=== PATIENT | female | born 1975 | race Caucasian/White ===

== ENCOUNTER 2019-02-05 13:30 | Emergency (ER) | payer OTHER ==
[2019-02-05] MEDS ORDERED: NORCO 5/325 MG PO ONE ×2 (13:44→15:11)
--- NOTE | 2019-02-05 13:48 | ERPHSYRPT ---
- History of Present Illness Time Seen by Provider: 02/05/19 13:44 Source: patient Exam Limitations: no limitations Physician History: 43-year-old white female arrives with complaint of "a blood clot" in her left anterior leg symptoms since today. Patient states she suddenly noticed a painful raised area on her left anterior mid bagley she states it is tender. She does state that she's been having pain in her left leg off and on for a couple of days. She denies any injury. Past medical history includes ulcers, depression, pacer, DVT, depression, varicose veins, sick sinus syndrome, stent in left leg, fibromyalgia. Past surgical history appendectomy, cholecystectomy, hysterectomy, pacemaker, stent in left leg Social history positive for tobacco use patient denies alcohol or illicit drug use. Timing/Duration: today Severity: moderate Modifying Factors: Improves With: nothing Associated Symptoms: other (pain in left leg raise painful area anterior left leg), No nausea, No vomiting, No abdominal pain, No shortness of breath, No heartburn, No diaphoresis, No cough, No chills, No chest pain, No fever, No headaches, No loss of appetite, No malaise, No rash, No syncope, No seizure, No weakness Allergies/Adverse Reactions: Penicillins Allergy (Verified 02/05/19 13:36) quetiapine fumarate [From Seroquel] Allergy (Verified 02/05/19 13:36) Home Medications: Warfarin Sodium [Coumadin] 7.5 mg PO HS 05/24/15 [History] Omeprazole 20 MG [Prilosec 20 mg] 20 mg PO DAILY 05/31/15 [History] Gabapentin 150 mg PO TID 06/07/15 [History] Albuterol Sulfate [Proventil Hfa] 2 puff IH Q6H PRN PRN 07/16/15 [History] Hctz/Triamteren 37.5 mg/25 mg* [Maxzide-25MG Tablet] 12.5 tab PO DAILY [History] Clonazepam 0.5 mg [Klonopin 0.5 MG] 0.5 mg PO HS 07/18/16 [History] Potassium Chloride 10 Meq Tab* [Klor Con 10 MEQ] 10 meq PO DAILY 07/18/16 [ History] Tizanidine HCl 4 mg [Zanaflex 4 MG] 4 mg PO BID 07/18/16 [History] Hydrocodone Bit/Acetaminophen [Belcher 5-325 Tablet] 1 each PO QID 02/05/19 [ History] Metoprolol Tartrate 25 mg [Lopressor 25MG Tab] 1 tab PO DAILY 02/05/19 [ History] Hx Tetanus, Diphtheria Vaccination/Date Given: Yes Hx Influenza Vaccination/Date Given: No Hx Pneumococcal Vaccination/Date Given: No - Review of Systems Constitutional: No Fever, No Chills Eyes: No Symptoms Ears, Nose, & Throat: No Symptoms Respiratory: No Cough, No Dyspnea Cardiac: No Chest Pain, No Edema, No Syncope Abdominal/Gastrointestinal: No Abdominal Pain, No Nausea, No Vomiting, No Diarrhea Genitourinary Symptoms: No Dysuria Musculoskeletal: Other (raised painful area left leg since today, pain in left lower extremity x2-3 weeks) Skin: No Rash Neurological: No Dizziness, No Focal Weakness, No Sensory Changes Psychological: No Symptoms Endocrine: No Symptoms All Other Systems: Reviewed and Negative - Past Medical History Pertinent Past Medical History: Yes Neurological History: No Pertinent History ENT History: No Pertinent History Cardiac History: Other Respiratory History: No Pertinent History Endocrine Medical History: No Pertinent History Musculoskeletal History: No Pertinent History GI Medical History: Ulcer History: No Pertinent History Psycho-Social History: Depression Female Reproductive Disorders: No Pertinent History Other Medical History: PACEMAKER, 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,DEPRESSION,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,"SICK SINUS SYNDROME", STENT IN LEG,fibro - Past Surgical History Past Surgical History: Yes Neuro Surgical History: No Pertinent History Cardiac: No Pertinent History Respiratory: No Pertinent History Gastrointestinal: Appendectomy, Cholecystectomy Genitourinary: No Pertinent History Musculoskeletal: No Pertinent History Female Surgical History: Hysterectomy Other Surgical History: PACEMAKER - Social History Smoking Status: Current every day smoker How long have you smoked: 24 Exposure to second hand smoke: No Drug Use: none Patient Lives Alone: No - Nursing Vital Signs Nursing Vital Signs: Initial Vital Signs Temperature 98.5 F 02/05/19 13:45 Pulse Rate 68 02/05/19 13:45 Respiratory Rate 18 02/05/19 13:45 Blood Pressure 124/78 02/05/19 13:45 O2 Sat by Pulse Oximetry 98 02/05/19 13:45 Pain Scale Pain Intensity 6 - Physical Exam General Appearance: mild distress, alert, other (tearfull) Eye Exam: PERRL/EOMI, eyes nml inspection Ears, Nose, Throat Exam: normal ENT inspection, TMs normal, pharynx normal, moist mucous membranes Neck Exam: normal inspection, non-tender, supple, full range of motion Respiratory Exam: normal breath sounds, lungs clear, No respiratory distress Cardiovascular Exam: regular rate/rhythm, normal heart sounds, normal peripheral pulses, capillary refill <2 sec Gastrointestinal/Abdomen Exam: soft, normal bowel sounds, No tenderness, No mass Back Exam: normal inspection, normal range of motion, No CVA tenderness, No vertebral tenderness Extremity Exam: normal range of motion, other (left leg negative swelling, one by 2 cm carpal raised area anterior mid left bagley painful a palpation) Neurologic Exam: alert, oriented x 3, cooperative, parking 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 as tested, normal mood/affect, nml cerebellar function, nml station & gait, sensation nml, No motor deficits Skin Exam: normal color, warm, dry, No rash Lymphatic Exam: No adenopathy SpO2 Interpretation: normal - Course Nursing assessment & vital signs reviewed: Yes Ordered Tests: Active Orders 24 hr Category Date Time Status Ken Bandage Application -[facility] STAT Care 02/05/19 15:57 Active VENOUS UNILAT/LIMITED EXTREMIT [US] Stat Exams 02/05/19 Ordered CBC W DIFF Stat Lab 02/05/19 13:43 Completed CMP Stat Lab 02/05/19 13:43 Completed D-DIMER QUANTITATION Stat Lab 02/05/19 13:43 Completed PROTIME WITH INR Stat Lab 02/05/19 13:43 Completed PTT Stat Lab 02/05/19 13:43 Completed Medication Summary Discontinued Medications Generic Name Dose Route Start Last Admin Trade Name Freq PRN Reason Stop Dose Admin Hydrocodone Bitart/Acetaminophen 1 tab 02/05/19 13:44 02/05/19 13:55 Belcher 5/325 Mg PO 02/05/19 13:45 1 tab STAT ONE Administration Hydrocodone Bitart/Acetaminophen Confirm 02/05/19 13:54 Belcher 5/325 Mg Administered 02/05/19 13:55 Dose 1 tab .ROUTE .STK-MED ONE Hydrocodone Bitart/Acetaminophen 1 tab 02/05/19 15:11 02/05/19 15:12 Belcher 5/325 Mg PO 02/05/19 15:12 1 tab STAT ONE Administration Hydrocodone Bitart/Acetaminophen Confirm 02/05/19 15:12 Belcher 5/325 Mg Administered 02/05/19 15:13 Dose 1 tab .ROUTE .STK-MED ONE Lab/Rad Data: Laboratory Result Diagrams 02/05/19 13:43 02/05/19 13:43 Laboratory Results 02/05/19 02/05/19 02/05/19 Range/Units 13:43 13:43 13:43 WBC 11.3 H (4.0-10.5) K/mm3 RBC 4.94 (4.1-5.4) M/mm3 Hgb 15.0 (12.0-16.0) gm/dl Hct 45.3 (35-47) % MCV 91.7 (78-100) fl MCH 30.4 (26-32) pg MCHC 33.1 (32-36) g/dl RDW 13.3 (11.5-14.0) % Plt Count 216 (150-450) K/mm3 MPV 11.1 H (6-9.5) fl Gran % 55.7 (36.0-66.0) % Eos # (Auto) 0.26 (0-0.5) Absolute Lymphs (auto) 3.92 (1.0-4.6) Absolute Monos (auto) 0.79 (0.0-1.3) Lymphocytes % 34.8 (24.0-44.0) % Monocytes % 7.0 (0.0-12.0) % Eosinophils % 2.3 (0.00-5.0) % Basophils % 0.2 (0.0-0.4) % Absolute Granulocytes 6.29 (1.4-6.9) Basophils # 0.02 (0-0.4) PT 35.7 H (9.95-12.35) SECONDS INR 3.09 H (0.8-3.0) APTT 55.0 H (25.3-37.0) SECONDS D-Dimer 829 H* (215-500) ng/mL Sodium 141 (137-145) mmol/L Potassium 3.7 (3.5-5.1) mmol/L Chloride 103 (98-107) mmol/L Carbon Dioxide 25 (22-30) mmol/L Anion Gap 17.0 H (5-15) MEQ/L BUN 9 (7-17) mg/dL Creatinine 0.99 (0.52-1.04) mg/dL Estimated GFR > 60.0 ML/MIN Glucose 86 (74-106) mg/dL Calcium 10.4 H (8.4-10.2) mg/dL Total Bilirubin 0.50 (0.2-1.3) mg/dL AST 26 (14-36) U/L ALT 22 (0-35) U/L Alkaline Phosphatase 81 (38-126) U/L Serum Total Protein 9.0 H (6.3-8.2) g/dL Albumin 4.9 (3.5-5.0) g/dL - Progress Progress: improved Progress Note: 02/05/19 15:58 Patient feeling better after Belcher x2 (). Venous Doppler negative for DVT per electrical engineering technologist. Will discharge patient will place Ken wrap to the left lower leg. - Departure Departure Disposition: Home Clinical Impression: Hematoma of left lower extremity Qualifiers: Encounter type: initial encounter Qualified Code(s): S80.12XA - Contusion of left lower leg, initial encounter Condition: Fair Critical Care Time: No Referrals: LOLA BRADFORD [Primary Care Provider] - Additional Instructions: Return home. Elevate left leg 24-48 hours. Cold packs to area 24-48 hours. Belcher as prescribed by your family . Followup with your family if symptoms no better in 24-48 hours worse or persist longer than 72 hours. Return for acute distress or for severe symptoms.
[2019-02-05 13:54] LABS: BASOPHIL % 0.2 % (0.0-0.4); Basophil (Absolute #) 0.02 (0-0.4); Eosinophil % 2.3 % (0.00-5.0); Eosinophil (Absolute #) 0.26 (0-0.5); Granulocyte Absolute (ANC) 6.29 (1.4-6.9); Granulocytes % 55.7 % (36.0-66.0); Hematocrit 45.3 % (35-47); Lymphocyte (Absolute #) 3.92 (1.0-4.6); Lymphocytes % 34.8 % (24.0-44.0); Mean Cell Volume 91.7 fl (78-100); Mean Corpuscular Hemoglobin 30.4 pg (26-32); Mean Corpuscular Hgb Concent. 33.1 g/dl (32-36); Mean Platelet Volume 11.1 fl (6-9.5); Monocyte (Absolute #) 0.79 (0.0-1.3); Platelet Count 216 K/mm3 (150-450); Red Blood Count 4.94 M/mm3 (4.1-5.4); Red Cell Distribution Width 13.3 % (11.5-14.0); White Blood Count 11.3 K/mm3 (4.0-10.5)
[2019-02-05] MEDS ORDERED: NORCO 5/325 MG ONE ×2 (13:54→15:12)
[2019-02-05 14:01] LABS: INR 3.09 (0.8-3.0); PROTIME 35.7 SECONDS (9.95-12.35)
[2019-02-05 14:04] LABS: ALBUMIN 4.9 g/dL (3.5-5.0); ALKALINE PHOSPHATASE 81 U/L (38-126); BLOOD UREA NITROGEN 9 mg/dL (7-17); CHLORIDE 103 mmol/L (98-107); Calcium 10.4 mg/dL (8.4-10.2); Carbon Dioxide 25 mmol/L (22-30); Creatinine 1 0.99 mg/dL (0.52-1.04); Glucose 86 mg/dL (74-106); Potassium 3.7 mmol/L (3.5-5.1); SGOT/AST 26 U/L (14-36); SGPT/ALT 22 U/L (0-35); SODIUM 141 mmol/L (137-145)
[2019-02-05 15:14] VITALS: PULSE 61; O2SAT 98
[2019-02-05 16:11] VITALS: BP 107/66
--- NOTE | 2019-02-05 21:17 | XRAY ---
Indication: Calf discoloration and pain. History of DVT. Two-dimensional sonogram and color Doppler imaging of the major venous vessels of the left leg was performed. Comparison: None No thrombus seen in the examined deep venous vessels of the left leg including greater saphenous vein. Veins demonstrate normal compressibility. Venous waveforms are normal with and without augmentation. Impression: Left leg negative for DVT. Comment: Preliminary report was given.
== END 2019-02-05 16:19 | disposition home or self-care (01) ==
LOC: ED 13:30
DX: S80.12XA Contusion of left lower leg, initial encounter (principal); M79.605 Pain in left leg; Z86.718 Personal history of other venous thrombosis and embolism; Z79.01 Long term (current) use of anticoagulants; Z79.899 Other long term (current) drug therapy; Z95.0 Presence of cardiac pacemaker
CPT/HCPCS: 36415; 80053; 85025; 85379; 85610; 85730; 93971; 99284; A9270-GY

== ENCOUNTER 2020-01-20 13:14 | Emergency (ER) | payer OTHER ==
[2020-01-20] MEDS ORDERED: TYLENOL EXTRA STRENGTH 500 MG PO STA (13:35)
[2020-01-20] MEDS ORDERED: MOTRIN 600 MG PO ONE (13:35)
[2020-01-20] MEDS ORDERED: MOTRIN 600 MG ONE (13:43)
[2020-01-20] MEDS ORDERED: TYLENOL EXTRA STRENGTH 500 MG ONE (13:43)
--- NOTE | 2020-01-20 13:57 | ERPHSYRPT ---
- History of Present Illness Time Seen by Provider: 01/20/20 13:17 Source: patient Exam Limitations: no limitations Patient Subjective Stated Complaint: pt here for right hand pain after hitting a wall. Triage Nursing Assessment: pt alert, walked in, resp easy, skin w/d/p. has swelling right hand. pink nail beds, has strong radial pulse Physician History: Patient is here with right hand pain. Patient states that she punched a wall just prior to arrival. No falls or other trauma. Patient now has pain over her fifth right metacarpal. 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: after hitting a wall Modifying factors/associated signs and symptoms: none tried Severity: moderate Allergies/Adverse Reactions: Penicillins Allergy (Verified 01/20/20 13:35) quetiapine fumarate [From Seroquel] Allergy (Verified 01/20/20 13:35) Home Medications: Warfarin Sodium [Coumadin] 7.5 mg PO HS 05/24/15 [History] Albuterol Sulfate [Proventil Hfa] 2 puff IH Q6H PRN PRN 07/16/15 [History] Clonazepam 0.5 mg [Klonopin 0.5 MG] 0.5 mg PO HS 07/18/16 [History] Potassium Chloride 10 Meq Tab* [Klor Con 10 MEQ] 10 meq PO DAILY 07/18/16 [ History] Gabapentin 300 mg PO TID 04/01/19 [History] hydroCHLOROthiazide [Hydrochlorothiazide] 12.5 mg PO DAILY 04/01/19 [History] Hx Tetanus, Diphtheria Vaccination/Date Given: Yes Hx Influenza Vaccination/Date Given: No Hx Pneumococcal Vaccination/Date Given: No Immunizations Up to Date: Yes Travel Risk - International Travel Have you traveled outside of the country in past 3 weeks: No - Coronavirus Screening Close contact with a COVID-19 positive Pt in past 14-21 Days: No - Review of Systems Constitutional: No Fever, No Chills Eyes: No Symptoms Ears, Nose, & Throat: No Symptoms Respiratory: No Cough, No Dyspnea Cardiac: No Chest Pain, No Edema, No Syncope Abdominal/Gastrointestinal: No Abdominal Pain, No Nausea, No Vomiting, No Diarrhea Genitourinary Symptoms: No Dysuria Musculoskeletal: Other (right hand pain), No Back Pain, No Neck Pain Skin: No Rash Neurological: No Dizziness, No Focal Weakness, No Sensory Changes Psychological: No Symptoms Endocrine: No Symptoms All Other Systems: Reviewed and Negative - Past Medical History Pertinent Past Medical History: Yes Neurological History: No Pertinent History ENT History: No Pertinent History Cardiac History: Other Respiratory History: No Pertinent History Endocrine Medical History: No Pertinent History Musculoskeletal History: Arthritis, Fibromyalgia GI Medical History: Ulcer History: No Pertinent History Psycho-Social History: Depression Female Reproductive Disorders: No Pertinent History Other Medical History: PACEMAKER, 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,DEPRESSION,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,"SICK SINUS SYNDROME", STENT IN LEG,fibro - Past Surgical History Past Surgical History: Yes Neuro Surgical History: No Pertinent History Cardiac: No Pertinent History, Cardiac Catheterization, Other Respiratory: No Pertinent History Gastrointestinal: Appendectomy, Cholecystectomy Genitourinary: No Pertinent History Musculoskeletal: No Pertinent History Female Surgical History: Hysterectomy Other Surgical History: PACEMAKER,femoral stent - Social History Smoking Status: Current every day smoker How long have you smoked: 24 Exposure to second hand smoke: Yes Drug Use: none Patient Lives Alone: No - Female History Hx Last Menstrual Period: post Hx Now: No - Nursing Vital Signs Nursing Vital Signs: Initial Vital Signs Temperature 97.2 F 01/20/20 13:29 Pulse Rate 87 01/20/20 13:29 Respiratory Rate 18 01/20/20 13:29 Blood Pressure 129/87 01/20/20 13:29 O2 Sat by Pulse Oximetry 97 01/20/20 13:29 Pain Scale Pain Intensity 10 - Physical Exam General Appearance: no apparent distress, alert Eye Exam: PERRL/EOMI, eyes nml inspection Ears, Nose, Throat Exam: normal ENT inspection, TMs normal, pharynx normal, moist mucous membranes Neck Exam: normal inspection, non-tender, supple, full range of motion Respiratory Exam: normal breath sounds, lungs clear, No respiratory distress Cardiovascular Exam: regular rate/rhythm, normal heart sounds, normal peripheral pulses Gastrointestinal/Abdomen Exam: soft, normal bowel sounds, No tenderness, No mass Back Exam: normal inspection, normal range of motion, No CVA tenderness, No vertebral tenderness Extremity Exam: normal inspection, normal range of motion, pelvis stable Neurologic Exam: alert, oriented x 3, cooperative, normal mood/affect, nml cerebellar function, nml station & gait, sensation nml, No motor deficits Skin Exam: normal color, warm, dry, No rash Lymphatic Exam: No adenopathy SpO2 Interpretation: normal SpO2: 97 Comments: 01/20/20 13:56 Right 5th metacarpal pain. No obvious deformity, sensation intact, 2+ capillary refill, 2 point tactile discrimination intact. 5 out of 5 strength. Full range of motion without pain. Compartments are soft, nontender. Overlying skin shows no tenting, bruising, ecchymosis. Ordered Tests: Active Orders 24 hr Category Date Time Status HAND (MINIMUM 3 VIEWS) Stat Exams 01/20/20 13:53 Completed Medication Summary Discontinued Medications Generic Name Dose Route Start Last Admin Trade Name Freq PRN Reason Stop Dose Admin Acetaminophen 1,000 mg 01/20/20 13:35 01/20/20 13:45 Tylenol Extra Strength 500 Mg PO 01/20/20 13:36 1,000 mg STAT STA Administration Acetaminophen Confirm 01/20/20 13:43 Tylenol Extra Strength 500 Mg Administered 01/20/20 13:44 Dose 1,000 mg .ROUTE .STK-MED ONE Ibuprofen 600 mg 01/20/20 13:35 01/20/20 13:46 Motrin 600 Mg PO 01/20/20 13:36 600 mg STAT ONE Administration Ibuprofen Confirm 01/20/20 13:43 Motrin 600 Mg Administered 01/20/20 13:44 Dose 600 mg .ROUTE .STK-MED ONE - Progress Progress: improved Progress Note: 01/20/20 13:56 We will obtain an XR and oral pain medication - Departure Departure Disposition: Home Clinical Impression: Right hand pain Condition: Stable Critical Care Time: No Referrals: LOLA BRADFORD [Primary Care Provider] - Instructions: Boxer's Fracture (DC) Additional Instructions: Repeat XRs and reexam in 1 week with ortho clinic
--- NOTE | 2020-01-20 14:37 | XRAY ---
Exam: 3 views of the right hand from 01/20/2020. Comparison: None. Indication: 44-year-old female hit door facing, complains of pain and swelling, contusion in proximal fifth metacarpal and distal fourth metacarpal areas. Findings: AP, oblique, and lateral images of the right hand were obtained. I see no acute fracture or dislocation. There is mild soft tissue prominence overlying the dorsal aspect of the distal metacarpal region on the lateral radiograph. Correlate clinically. No radiopaque soft tissue foreign body is seen. Joint spaces appear unremarkable. Impression: 1. No acute right hand fracture or dislocation is seen. 2. Mild soft tissue prominence/swelling overlying the dorsal aspect of the distal metacarpal region of the right hand on the lateral radiograph. Correlate clinically.
[2020-01-20 14:56] VITALS: BP 123/86; PULSE 64; O2SAT 96
== END 2020-01-20 14:56 | disposition home or self-care (01) ==
LOC: ED 13:14
DX: M79.641 Pain in right hand (principal); W22.09XA Striking against other stationary object, initial encounter; Y93.89 Activity, other specified; Y92.89 Other specified places as the place of occurrence of the external cause; Z79.01 Long term (current) use of anticoagulants; Z95.0 Presence of cardiac pacemaker; Z72.0 Tobacco use; Z79.899 Other long term (current) drug therapy; M79.7 Fibromyalgia; Z86.718 Personal history of other venous thrombosis and embolism; I86.4 Gastric varices
CPT/HCPCS: 73130; 99283; L3908; A9270-GY

== ENCOUNTER 2020-01-27 13:04 | Emergency (ER) | payer OTHER ==
[2020-01-27] MEDS ORDERED: Sodium Chloride 0.9% 1000 ML 1,000 ML IV STA (13:20)
[2020-01-27] MEDS ORDERED: BABY ASPIRIN 81 MG CHEW PO ONE (13:20)
[2020-01-27] MEDS ORDERED: Sodium Chloride 0.9% 1000 ML 1,000 ML ONE (13:33)
[2020-01-27] MEDS ORDERED: BABY ASPIRIN 81 MG CHEW ONE (13:33)
--- NOTE | 2020-01-27 13:33 | ERPHSYRPT ---
- History of Present Illness Time Seen by Provider: 01/27/20 13:08 Exam Limitations: no limitations Patient Subjective Stated Complaint: pt reports upon waking approx 0500 she had sharp left sided anterior chest pain, pt states she called her PCP and she was advised to present to ED. at this time pt also reports nausea. pt states that last weekend she had a fall and sustained a broken hand as well as abrasions and contusions to her back arms and legs. Triage Nursing Assessment: pt is aox3, pupils perrl, afebrile, resps easy and non labored, radial pulses strong and regular, cap refill < 3 seconds, pt skin pink warm dry. splint noted to right hand at time of triage, multiple purple and yellow bruises noted to bilat lower extremities, abrasions noted as well. no dr millard or swelling noted at this time. pt ambulated to trt room with no difficulties. pt appears in no acute distress. Physician History: Patient is here for chest pain. Left-sided. No falls no trauma. Patient states that she woke up with some chest pain around 5 AM. It has since gone away. Patient has some right hand pain from a fall last week. No other injuries from this fall. Location: chest, left sided Quality: sharp Radiation: none Severity: moderate Duration: this AM Timing: self resolved Modifying factors/associated signs and symptoms: none tried Allergies/Adverse Reactions: Penicillins Allergy (Verified 01/27/20 13:25) quetiapine fumarate [From Seroquel] Allergy (Verified 01/27/20 13:25) Home Medications: Warfarin Sodium [Coumadin] 7.5 mg PO UD 05/24/15 [History] Albuterol Sulfate [Proventil Hfa] 2 puff IH Q6H PRN PRN 07/16/15 [History] Clonazepam 0.5 mg [Klonopin 0.5 MG] 0.5 mg PO HS 07/18/16 [History] Potassium Chloride 10 Meq Tab* [Klor Con 10 MEQ] 10 meq PO DAILY 07/18/16 [History] hydroCHLOROthiazide [Hydrochlorothiazide] 12.5 mg PO DAILY 04/01/19 [History] Gabapentin 300 mg PO TID 01/27/20 [History] Hydrocodone/Acetaminophen [Hydrocodone-Acetamin 7.5-325] 1.5 each PO TID 01/27/20 [History] Warfarin Sodium 5 mg [Coumadin 5 MG] 5 mg PO UD 01/27/20 [History] Hx Tetanus, Diphtheria Vaccination/Date Given: Yes Hx Influenza Vaccination/Date Given: No Hx Pneumococcal Vaccination/Date Given: No Immunizations Up to Date: Yes Travel Risk - International Travel Have you traveled outside of the country in past 3 weeks: No - Coronavirus Screening Are you exhibiting any of the following symptoms?: No Close contact with a COVID-19 positive Pt in past 14-21 Days: No - Review of Systems Constitutional: No Fever, No Chills Eyes: No Symptoms Ears, Nose, & Throat: No Symptoms Respiratory: No Cough, No Dyspnea Cardiac: Chest Pain, No Edema, No Syncope Abdominal/Gastrointestinal: No Abdominal Pain, No Nausea, No Vomiting, No Diarrhea Genitourinary Symptoms: No Dysuria Musculoskeletal: No Back Pain, No Neck Pain Skin: No Rash Neurological: No Dizziness, No Focal Weakness, No Sensory Changes Psychological: No Symptoms Endocrine: No Symptoms All Other Systems: Reviewed and Negative - Past Medical History Pertinent Past Medical History: Yes Neurological History: No Pertinent History ENT History: No Pertinent History Cardiac History: Other Respiratory History: No Pertinent History Endocrine Medical History: No Pertinent History Musculoskeletal History: Arthritis, Fibromyalgia GI Medical History: Ulcer History: No Pertinent History Psycho-Social History: Depression Female Reproductive Disorders: No Pertinent History Other Medical History: PACEMAKER, 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,DEPRESSION,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,"SICK SINUS SYNDROME", STENT IN LEG,fibro - Past Surgical History Past Surgical History: Yes Neuro Surgical History: No Pertinent History Cardiac: No Pertinent History, Cardiac Catheterization, Other Respiratory: No Pertinent History Gastrointestinal: Appendectomy, Cholecystectomy Genitourinary: No Pertinent History Musculoskeletal: No Pertinent History Female Surgical History: Hysterectomy Other Surgical History: PACEMAKER,femoral stent - Social History Smoking Status: Current every day smoker How long have you smoked: 0.5 Exposure to second hand smoke: Yes Drug Use: none Patient Lives Alone: No - Female History Hx Last Menstrual Period: 2013 Hx Now: No - Nursing Vital Signs Nursing Vital Signs: Initial Vital Signs Temperature 98.1 F 01/27/20 13:09 Pulse Rate 72 01/27/20 13:09 Respiratory Rate 20 01/27/20 13:09 Blood Pressure 121/77 01/27/20 13:09 O2 Sat by Pulse Oximetry 99 01/27/20 13:09 Pain Scale Pain Intensity 0 - Physical Exam General Appearance: no apparent distress, alert Eye Exam: PERRL/EOMI, eyes nml inspection Ears, Nose, Throat Exam: normal ENT inspection, TMs normal, pharynx normal, moist mucous membranes Neck Exam: normal inspection, non-tender, supple, full range of motion Respiratory Exam: normal breath sounds, lungs clear, No respiratory distress Cardiovascular Exam: regular rate/rhythm, normal heart sounds, normal peripheral pulses Gastrointestinal/Abdomen Exam: soft, normal bowel sounds, No tenderness, No mass Back Exam: normal inspection, normal range of motion, No CVA tenderness, No vertebral tenderness Extremity Exam: normal inspection, normal range of motion, pelvis stable Neurologic Exam: alert, oriented x 3, cooperative, normal mood/affect, nml cerebellar function, nml station & gait, sensation nml, No motor deficits Skin Exam: normal color, warm, dry, No rash Lymphatic Exam: No adenopathy SpO2: 99 - Course Nursing assessment & vital signs reviewed: Yes EKG Interpreted by Me: RATE, Sinus Rhythm - Radiology Exams Chest X-ray Interpretation: Interpreted by me, No Pneumothorax Ordered Tests: Active Orders 24 hr Category Date Time Status Environmental Conservation Professor STAT Care 01/27/20 13:21 Active EKG-ER Only STAT Care 01/27/20 13:20 Active IV Insertion STAT Care 01/27/20 13:20 Active CHEST 2 VIEWS (PA AND LAT) Stat Exams 01/27/20 13:21 Completed HAND (MINIMUM 3 VIEWS) Stat Exams 01/27/20 13:48 Completed CBC W DIFF Stat Lab 01/27/20 13:35 Completed CMP Stat Lab 01/27/20 13:35 Completed LIPASE Stat Lab 01/27/20 13:35 Completed TROPONIN Q3H Lab 01/27/20 13:35 Completed TROPONIN Q3H Lab 01/27/20 16:30 Ordered TROPONIN Q3H Lab 01/27/20 19:30 Ordered TROPONIN Q3H Lab 01/27/20 22:30 Ordered TROPONIN Q3H Lab 01/28/20 01:30 Ordered Medication Summary Discontinued Medications Generic Name Dose Route Start Last Admin Trade Name Freq PRN Reason Stop Dose Admin Aspirin 324 mg 01/27/20 13:20 01/27/20 13:47 Baby Aspirin 81 Mg Chew PO 01/27/20 13:21 324 mg STAT ONE Administration Aspirin Confirm 01/27/20 13:33 Baby Aspirin 81 Mg Chew Administered 01/27/20 13:34 Dose 324 mg .ROUTE .STK-MED ONE Sodium Chloride 1,000 mls @ 999 mls/hr 01/27/20 13:20 01/27/20 13:46 Sodium Chloride 0.9% 1000 Ml IV 01/27/20 14:20 999 mls/hr .Q1H1M STA Administration Sodium Chloride Confirm 01/27/20 13:33 Sodium Chloride 0.9% 1000 Ml Administered 01/27/20 13:34 Dose 1,000 mls @ ud .ROUTE .STK-MED ONE Lab/Rad Data: Laboratory Result Diagrams 01/27/20 13:35 01/27/20 13:35 Laboratory Results 01/27/20 01/27/20 01/27/20 Range/Units 13:35 13:35 13:35 WBC 9.0 (4.0-10.5) K/mm3 RBC 4.82 (4.1-5.4) M/mm3 Hgb 14.5 (12.0-16.0) gm/dl Hct 43.9 (35-47) % MCV 91.1 (78-100) fl MCH 30.1 (26-32) pg MCHC 33.0 (32-36) g/dl RDW 13.6 (11.5-14.0) % Plt Count 182 (150-450) K/mm3 MPV 11.1 H (7.5-11.0) fl Gran % 65.1 (36.0-66.0) % Eos # (Auto) 0.21 (0-0.5) Absolute Lymphs (auto) 2.45 (1.0-4.6) Absolute Monos (auto) 0.46 (0.0-1.3) Lymphocytes % 27.3 (24.0-44.0) % Monocytes % 5.1 (0.0-12.0) % Eosinophils % 2.3 (0.00-5.0) % Basophils % 0.2 (0.0-0.4) % Absolute Granulocytes 5.85 (1.4-6.9) Basophils # 0.02 (0-0.4) Sodium 138 (137-145) mmol/L Potassium 3.1 L (3.5-5.1) mmol/L Chloride 102 (98-107) mmol/L Carbon Dioxide 28 (22-30) mmol/L Anion Gap 11.6 (5-15) MEQ/L BUN 11 (7-17) mg/dL Creatinine 0.81 (0.52-1.04) mg/dL Estimated GFR > 60.0 ML/MIN Glucose 166 H (74-106) mg/dL Calcium 9.8 (8.4-10.2) mg/dL Total Bilirubin 0.40 (0.2-1.3) mg/dL AST 25 (14-36) U/L ALT 18 (0-35) U/L Alkaline Phosphatase 82 (38-126) U/L Troponin I < 0.012 (0.000-0.034) ng/mL Serum Total Protein 7.8 (6.3-8.2) g/dL Albumin 4.3 (3.5-5.0) g/dL Lipase 111 (23-300) U/L - Progress Progress: improved Progress Note: 01/27/20 13:49 - We'll obtain basic labs, fluids, EKG, troponin, chest x-ray - I feel comfortable with one time negative troponin given symptoms have improved and started greater then 6 hours ago. - EKG shows no ST changes - my read. See full read below. - O2 saturations consistently greater than 95%. - CXR shows no pneumonia, pneumothorax - my read - no other obvious lab abnormalities Counseled pt/family regarding: lab results, diagnosis, need for follow-up, rad results, smoking cessation - Departure Departure Disposition: Home Clinical Impression: Atypical chest pain Condition: Stable Critical Care Time: No Referrals: LOLA BRADFORD [Primary Care Provider] - Instructions: Chest Pain (DC)
[2020-01-27 13:41] LABS: Absolute Neutrophil Ct (ANC) 5.85 (1.4-6.9); BASOPHIL % 0.2 % (0.0-0.4); Basophil (Absolute #) 0.02 (0-0.4); Eosinophil % 2.3 % (0.00-5.0); Eosinophil (Absolute #) 0.21 (0-0.5); Hematocrit 43.9 % (35-47); Hemoglobin 14.5 gm/dl (12.0-16.0); Lymphocyte (Absolute #) 2.45 (1.0-4.6); Lymphocytes % 27.3 % (24.0-44.0); Mean Cell Volume 91.1 fl (78-100); Mean Corpuscular Hemoglobin 30.1 pg (26-32); Mean Platelet Volume 11.1 fl (7.5-11.0); Monocyte (Absolute #) 0.46 (0.0-1.3); Monocytes % 5.1 % (0.0-12.0); Neutrophil % 65.1 % (36.0-66.0); Platelet Count 182 K/mm3 (150-450); Red Blood Count 4.82 M/mm3 (4.1-5.4); Red Cell Distribution Width 13.6 % (11.5-14.0)
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
--- NOTE | 2020-01-27 13:58 | XRAY ---
Indication: Chest pain. Comparison: December 17, 2019. PA/lateral chest demonstrates normal heart and lungs again with left dual-lead pacemaker. Bony thorax intact again with mild dextroscoliosis. No new/acute findings.
[2020-01-27 14:01] LABS: ALBUMIN 4.3 g/dL (3.5-5.0); ALKALINE PHOSPHATASE 82 U/L (38-126); ANION GAP 11.6 MEQ/L (5-15); BLOOD UREA NITROGEN 11 mg/dL (7-17); CHLORIDE 102 mmol/L (98-107); Calcium 9.8 mg/dL (8.4-10.2); Carbon Dioxide 28 mmol/L (22-30); Creatinine 1 0.81 mg/dL (0.52-1.04); Glucose 166 mg/dL (74-106); LIPASE 111 U/L (23-300); Potassium 3.1 mmol/L (3.5-5.1); SGOT/AST 25 U/L (14-36); SGPT/ALT 18 U/L (0-35); SODIUM 138 mmol/L (137-145); Total Protein 7.8 g/dL (6.3-8.2)
[2020-01-27 14:27] VITALS: BP 114/68; PULSE 62
[2020-01-27 14:32] VITALS: O2SAT 99
== END 2020-01-27 14:41 | disposition home or self-care (01) ==
LOC: ED 13:04
DX: R07.9 Chest pain, unspecified (principal); Z79.01 Long term (current) use of anticoagulants; Z79.899 Other long term (current) drug therapy; M19.90 Unspecified osteoarthritis, unspecified site; Z95.0 Presence of cardiac pacemaker; Z86.718 Personal history of other venous thrombosis and embolism; Z72.0 Tobacco use
CPT/HCPCS: 36000; 36415; 71046; 73130; 80053; 83690; 84484; 85025; 93005; 93041; 96360; 99284; A9270-GY

== ENCOUNTER 2021-02-04 21:41 | Emergency (ER) | payer OTHER ==
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
[2021-02-04 22:09] VITALS: O2SAT 98
[2021-02-04 23:21] VITALS: BP 125/70; PULSE 67
--- NOTE | 2021-02-05 08:56 | XRAY ---
Indication: 2nd digit pain, bruising, and erythema following injury. Comparison: None 3 nonweightbearing views right foot obtained. No bony, articular, or soft tissue abnormalities.
== END 2021-02-04 23:27 | disposition home or self-care (01) ==
LOC: ED 21:41
DX: S92.531A Displaced fracture of distal phalanx of right lesser toe(s), initial encounter for closed fracture (principal); S92.501A Displaced unspecified fracture of right lesser toe(s), initial encounter for closed fracture; Y04.0XXA Assault by unarmed brawl or fight, initial encounter; Y93.89 Activity, other specified; Y92.9 Unspecified place or not applicable; Z79.01 Long term (current) use of anticoagulants; Z79.899 Other long term (current) drug therapy; S90.31XA Contusion of right foot, initial encounter; M79.7 Fibromyalgia
CPT/HCPCS: 73630; 99283

== ENCOUNTER 2021-09-18 16:26 | Emergency (ER) | payer OTHER ==
--- NOTE | 2021-09-18 17:31 | ERPHSYRPT ---
- History of Present Illness Time Seen by Provider: 09/18/21 16:40 Source: patient Exam Limitations: no limitations Patient Subjective Stated Complaint: PT states "I was out walking my little dog and another dog came and attacked my dog and I picked mine up and it bit my left forearm." Triage Nursing Assessment: Pt presented alert and oriented X 3, skin wpd pt ambulates with an upright steady gait. PT left arm has two puncture coyne noted to lateral and medial side Physician History: Patient is a 46-year-old female presents to emergency department for evaluation of a dog bite to her left forearm. Patient states she was walking her dog when the second dog approached and then attacked her dog. Patient states she was bitten the left forearm in the process. Injury occurred just prior to arrival. Patient is on blood thinners. The area is swollen. No other injuries reported. Pain described as an ache that is localized. No radiation. Pain worse with movement and palpation. Pain improved with rest. Patient voices no other complaints concerns at this time. Timing/Duration: today Severity: mild Modifying Factors: Improves With: nothing Associated Symptoms: denies symptoms Allergies/Adverse Reactions: Penicillins Allergy (Verified 01/27/20 13:25) quetiapine fumarate [From Seroquel] Allergy (Verified 01/27/20 13:25) Home Medications: Albuterol Sulfate [Proventil Hfa] 2 puff IH Q6H PRN PRN 07/16/15 [History] Potassium Chloride 10 Meq Tab* [Klor Con 10 MEQ] 10 meq PO DAILY 07/18/16 [History] hydroCHLOROthiazide [Hydrochlorothiazide] 12.5 mg PO DAILY 04/01/19 [History] Gabapentin 300 mg PO TID 01/27/20 [History] Warfarin Sodium 5 mg [Coumadin 5 MG] 5 mg PO WE@209901/27/20 [History] Warfarin Sodium 7.5 mg PO SUMOTUTHFRSA@209907/11/21 [History] Hx Tetanus, Diphtheria Vaccination/Date Given: Yes Hx Influenza Vaccination/Date Given: No Hx Pneumococcal Vaccination/Date Given: No Immunizations Up to Date: Yes Travel Risk - International Travel Have you traveled outside of the country in past 3 weeks: No - Coronavirus Screening Are you exhibiting any of the following symptoms?: No Close contact with a COVID-19 positive Pt in past 14-21 Days: No - Vaccine Status Have you recieved a Covid-19 vaccination: No - Review of Systems Constitutional: No Symptoms, No Fever, No Chills Eyes: No Symptoms Ears, Nose, & Throat: No Symptoms Respiratory: No Symptoms, No Cough, No Dyspnea Cardiac: No Symptoms, No Chest Pain, No Edema, No Syncope Abdominal/Gastrointestinal: No Symptoms, No Abdominal Pain, No Nausea, No Vomiting, No Diarrhea Genitourinary Symptoms: No Symptoms, No Dysuria Musculoskeletal: No Symptoms, No Back Pain, No Neck Pain Skin: No Symptoms, No Rash Neurological: No Symptoms, No Dizziness, No Focal Weakness, No Sensory Changes Psychological: No Symptoms Endocrine: No Symptoms Hematologic/Lymphatic: No Symptoms Immunological/Allergic: No Symptoms All Other Systems: Reviewed and Negative - Past Medical History Pertinent Past Medical History: Yes Neurological History: No Pertinent History ENT History: No Pertinent History Cardiac History: Other Respiratory History: No Pertinent History Endocrine Medical History: No Pertinent History Musculoskeletal History: Arthritis, Fibromyalgia GI Medical History: Ulcer History: No Pertinent History Psycho-Social History: Depression Female Reproductive Disorders: No Pertinent History Other Medical History: PACEMAKER, 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,DEPRESSION,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,"SICK SINUS SYNDROME", STENT IN LEG,fibro - Past Surgical History Past Surgical History: Yes Neuro Surgical History: No Pertinent History Cardiac: No Pertinent History, Cardiac Catheterization, Other Respiratory: No Pertinent History Gastrointestinal: Appendectomy, Cholecystectomy Genitourinary: No Pertinent History Musculoskeletal: No Pertinent History Female Surgical History: Hysterectomy Other Surgical History: PACEMAKER,femoral stent - Social History Smoking Status: Current every day smoker How long have you smoked: 0.5 Exposure to second hand smoke: Yes Drug Use: none Patient Lives Alone: No - Female History Hx Now: No - Nursing Vital Signs Nursing Vital Signs: Initial Vital Signs Temperature 98.0 F 09/18/21 16:36 Pulse Rate 76 09/18/21 16:36 Respiratory Rate 20 09/18/21 16:36 Blood Pressure 116/90 09/18/21 16:36 O2 Sat by Pulse Oximetry 100 09/18/21 16:36 Pain Scale Pain Intensity 4 - Physical Exam General Appearance: no apparent distress, alert Eye Exam: PERRL/EOMI, eyes nml inspection Ears, Nose, Throat Exam: normal ENT inspection, TMs normal, pharynx normal, moist mucous membranes Neck Exam: normal inspection, non-tender, supple, full range of motion Respiratory Exam: normal breath sounds, lungs clear, airway intact, No respiratory distress Cardiovascular Exam: regular rate/rhythm, normal heart sounds, normal peripheral pulses Gastrointestinal/Abdomen Exam: soft, normal bowel sounds, No tenderness, No mass Back Exam: normal inspection, normal range of motion, No CVA tenderness, No vertebral tenderness Extremity Exam: normal inspection, normal range of motion, pelvis stable, other Neurologic Exam: alert, oriented x 3, cooperative, normal mood/affect, nml cerebellar function, nml station & gait, sensation nml, No motor deficits Skin Exam: normal color, warm, dry, No rash Lymphatic Exam: No adenopathy SpO2 Interpretation: normal SpO2: 100 O2 Delivery: Room Air - Course Nursing assessment & vital signs reviewed: Yes Ordered Tests: Active Orders 24 hr Category Date Time Status FOREARM Stat Exams 09/18/21 17:35 Ordered Medication Summary Discontinued Medications Generic Name Dose Route Start Last Admin Trade Name Freq PRN Reason Stop Dose Admin Clindamycin Phosphate 600 mg 09/18/21 17:39 Clindamycin Phosphate 600 Mg/4 Ml Vial IM 09/18/21 17:40 ONCE STA - Progress Progress: improved Progress Note: Patient reassessed. Patient resting comfortably. X-rays negative for fracture dislocation. No foreign body. Patient declined pain medication. Tetanus up-to-date. There is a small 3 to 4 mm laceration. We will allow this to close via secondary intention. Steri-Strip applied after wound cleaned and irrigated by RN. Closing the wound would increase the risk of a infection. Patient is allergic penicillin. We will treat with clindamycin. Patient received a dose of clindamycin in our ED. Patient agrees to follow-up with her primary care doctor within 48 hours for evaluation. Patient voices no other complaints concerns at this time. Will discharge home. Portions of this note were created with voice recognition technology. There may be grammatical, spelling, punctuation or sound alike errors 09/18/21 17:36 09/18/21 17:42 Counseled pt/family regarding: diagnosis, need for follow-up, rad results - Departure Departure Disposition: Home Clinical Impression: Dog bite, Laceration Condition: Stable Critical Care Time: No Referrals: WILLEM COTA, [Primary Care Provider] - Follow up/PCP as directed Additional Instructions: Discharge/Care Plan DWIGHT DILL was seen on 09/18/21 in the Emergency Room. The patient was counseled regarding Diagnosis,Lab results, Imaging studies, need for follow up and when to return to the Emergency Room. Prescriptions given: Discharge Note I have spoken with the patient and/or caregivers. I have explained the patient's condition, diagnosis and treatment plan based on the information available to me at this time. I have answered the patient's and/or caregiver's questions and addressed any concerns. The patient and/or caregivers have as good understanding of the patient's diagnosis, condition and treatment plan as can be expected at this point. The vital signs have been stable. The patient's condition is stable and appropriate for discharge from the emergency department. The patient will pursue further outpatient evaluation with the primary care physician or other designated or consulting physician as outlined in the discharge instructions. The patient and/or caregivers are agreeable to this plan of care and follow-up instructions have been explained in detail. The patient and/or caregivers have received these instruction. The patient/and or caregivers are aware that any significant change in condition or worsening of symptoms should prompt an immediate return to this or the closest emergency department or call 911. Prescriptions: Clindamycin HCl 150 mg [Cleocin 150 mg Capsule] 2 cap PO TID 7 Days #42 cap
[2021-09-18] MEDS ORDERED: Cleocin Phosphate IV 600 MG/4 ML IM STA (17:39)
[2021-09-18] MEDS ORDERED: Cleocin Phosphate IV 600 MG/4 ML ONE (17:57)
[2021-09-18 18:07] VITALS: BP 108/74; PULSE 69; O2SAT 98
--- NOTE | 2021-09-19 08:53 | XRAY ---
Indication: Dog bite. Comparison: None 2 view left forearm demonstrates distal posterior soft tissue swelling with tiny subcutaneous emphysema concerning for gas forming infection. No other bony, articular, or soft tissue abnormalities. Comment: No preliminary interpretation by interpreting ER clinician. Telephone report given to Dr. Glover at 0851 hrs on 09/19/20.
== END 2021-09-18 18:14 | disposition home or self-care (01) ==
LOC: ED 16:26
DX: S50.872A Other superficial bite of left forearm, initial encounter (principal); W54.0XXA Bitten by dog, initial encounter; Y93.K1 Activity, walking an animal; Z86.718 Personal history of other venous thrombosis and embolism; Z79.01 Long term (current) use of anticoagulants; Z95.0 Presence of cardiac pacemaker; F32.A Depression, unspecified; Z72.0 Tobacco use; Z79.899 Other long term (current) drug therapy
CPT/HCPCS: 73090; 96372; 99283

== ENCOUNTER 2022-01-26 10:12 | Emergency (ER) | payer OTHER ==
[2022-01-26] MEDS ORDERED: MORPHINE SULFATE 4 MG INJ ONE (10:24)
[2022-01-26 10:44] VITALS: O2SAT 98
[2022-01-26] MEDS ORDERED: MORPHINE SULFATE 4 MG INJ IM ONE (10:54)
--- NOTE | 2022-01-26 11:00 | ERPHSYRPT ---
- History of Present Illness Time Seen by Provider: 01/26/22 10:47 Source: patient Exam Limitations: no limitations Patient Subjective Stated Complaint: Dog bite to left breast Triage Nursing Assessment: Patient brought back to ED per w/c and transferred self to bed. Patient A+O X 3. Patient's skin pink, warm and dry. Patient states her two dogs were fighting and she attempted to separate them when one of the dogs bit her left breast. Patient did not have bra on. Patient states dog is medium size unknown breed, but is her own dog. Patient complains of pain 10/10. Patient has multiple various bite barks noted to left breast. Physician History: 46 years old female presented in the ER with chief complaint of dog bite to left breast. Patient has 2 dogs who were fighting and tried to separate them and one of them jumped on her. She did not have bra on and got better on the left breast. She has multiple abrasions on the breast as well. Complaining of sharp shooting severe pain. There was bleeding initially but stopped with applying pressure. Timing/Duration: today, constant, sudden Quality: painful Severity: moderate, severe Location: other (Left breast) Possible Causes: other (Dog bite) Associated Symptoms: rash, swelling/mass/lumps Allergies/Adverse Reactions: Penicillins Allergy (Verified 01/26/22 10:30) quetiapine fumarate [From Seroquel] Allergy (Verified 01/26/22 10:30) Home Medications: Albuterol Sulfate [Proventil Hfa] 2 puff IH Q6H PRN PRN 07/16/15 [History] Potassium Chloride Tab* [Klor Con 10 MEQ] 10 meq PO DAILY 07/18/16 [History] hydroCHLOROthiazide [Hydrochlorothiazide] 12.5 mg PO DAILY 04/01/19 [History] Gabapentin 300 mg PO TID 01/27/20 [History] Warfarin Sodium 5 mg [Coumadin 5 MG] 5 mg PO WE@209901/27/20 [History] Warfarin Sodium 7.5 mg PO SUMOTUTHFRSA@209907/11/21 [History] Hx Tetanus, Diphtheria Vaccination/Date Given: Yes Hx Influenza Vaccination/Date Given: No Hx Pneumococcal Vaccination/Date Given: No Immunizations Up to Date: Yes Travel Risk - International Travel Have you traveled outside of the country in past 3 weeks: No - Coronavirus Screening Are you exhibiting any of the following symptoms?: No Close contact with a COVID-19 positive Pt in past 14-21 Days: No - Vaccine Status Have you recieved a Covid-19 vaccination: No - Review of Systems Constitutional: No Symptoms Ears, Nose, & Throat: No Symptoms Respiratory: No Symptoms Cardiac: No Symptoms Abdominal/Gastrointestinal: No Symptoms Musculoskeletal: Injury Skin: Skin Lesions Neurological: No Symptoms Psychological: No Symptoms Endocrine: No Symptoms Hematologic/Lymphatic: No Symptoms Immunological/Allergic: No Symptoms - Past Medical History Pertinent Past Medical History: Yes Neurological History: No Pertinent History ENT History: No Pertinent History Cardiac History: Other Respiratory History: No Pertinent History Endocrine Medical History: No Pertinent History Musculoskeletal History: Arthritis, Fibromyalgia GI Medical History: Ulcer History: No Pertinent History Psycho-Social History: Depression Female Reproductive Disorders: No Pertinent History Other Medical History: PACEMAKER, 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,DEPRESSION,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,"SICK SINUS SYNDROME", STENT IN LEG,fibro - Past Surgical History Past Surgical History: Yes Neuro Surgical History: No Pertinent History Cardiac: No Pertinent History, Cardiac Catheterization, Other Respiratory: No Pertinent History Gastrointestinal: Appendectomy, Cholecystectomy Genitourinary: No Pertinent History Musculoskeletal: No Pertinent History Female Surgical History: Hysterectomy Other Surgical History: PACEMAKER,femoral stent - Social History Smoking Status: Current every day smoker How long have you smoked: years Exposure to second hand smoke: Yes Drug Use: none Patient Lives Alone: No - Female History Hx Last Menstrual Period: hysterectomy Hx Now: No - Nursing Vital Signs Nursing Vital Signs: Initial Vital Signs Temperature 97.9 F 01/26/22 10:32 Pulse Rate 89 01/26/22 10:32 Respiratory Rate 19 01/26/22 10:32 Blood Pressure 111/62 01/26/22 10:32 O2 Sat by Pulse Oximetry 98 01/26/22 10:32 Pain Scale Pain Intensity 10 - Physical Exam General Appearance: no apparent distress, alert Eye Exam: PERRL/EOMI Ears, Nose, Throat Exam: normal ENT inspection Neck Exam: normal inspection, non-tender, supple, full range of motion Respiratory Exam: normal breath sounds, lungs clear Cardiovascular Exam: regular rate/rhythm, normal heart sounds, other (Multiple abrasion left breast with lacerations and fatty tissue hanging out. 2 lacerations each on the medial lateral side in the lower quadrant 1.5 cm, another 1.5 cm, and another 1.5 cm and 51 is 1 cm on the upper medial quadrant. No active spurting, slow oozing. Abrasion on the nipple/breast) Back Exam: normal inspection, normal range of motion Extremity Exam: normal inspection Neurologic Exam: alert, oriented x 3, cooperative Skin Exam: normal color SpO2 Interpretation: normal SpO2: 98 O2 Delivery: Room Air Procedures - Laceration/Wound Repair Left Time of Procedure: 10:57 Wound Location: Left (Breast) Wound's Depth, Shape: into muscle, irregular (Multiple lacerations altogether 5.5 cm) Wound Explored: clean Irrigated: Yes Hibiclens Prep: Yes Anesthesia: 1% lidocaine w/ Epi Volume Anesthetic (ccs): 10 Wound Debrided: minimal Wound Repaired With: sutures Suture Size/Type: 4-0, ethilon Number of Sutures: 11 Layer Closure?: No Sterile Dressing Applied?: Yes Ordered Tests: Medication Summary Discontinued Medications Generic Name Dose Route Start Last Admin Trade Name Daniel PRN Reason Stop Dose Admin Lidocaine/Epinephrine Confirm 01/26/22 11:16 Lidocaine Hcl/Epinephrine 1% 20 Ml Administered 01/26/22 11:17 Dose 10 ml .ROUTE .STK-MED ONE Lidocaine/Epinephrine 10 ml 01/26/22 11:39 01/26/22 11:51 Lidocaine Hcl/Epinephrine 1% 20 Ml IJ 01/26/22 11:40 10 ml STAT ONE Administration Morphine Sulfate Confirm 01/26/22 10:24 Morphine Sulfate 4 Mg/Ml Injection Administered 01/26/22 10:25 Dose 4 mg .ROUTE .STK-MED ONE Morphine Sulfate 4 mg 01/26/22 10:54 01/26/22 10:29 Morphine Sulfate 4 Mg/Ml Injection IM 01/26/22 10:55 4 mg STAT ONE Administration Ondansetron HCl Confirm 01/26/22 11:33 Zofran 4 Mg/Udtablet Orally Disintegrating Administered 01/26/22 11:34 Dose 4 mg .ROUTE .STK-MED ONE Ondansetron HCl 4 mg 01/26/22 11:36 01/26/22 11:38 Zofran 4 Mg/Udtablet Orally Disintegrating PO 01/26/22 11:37 4 mg STAT ONE Administration - Progress Progress: improved Progress Note: 01/26/22 11:55 Laceration is repaired. Started on clindamycin. Patient is up-to-date with tetanus. 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 She is on Coumadin, will obtain INR here and recommended outpatient follow-up and careful monitoring to make sure that she does not get supratherapeutic INR. Outpatient primary care follow-up recommended in 2 days as I doubt it will probably get infected. Discussed signs symptoms of worsening needing return to ER which she seems understanding. Counseled pt/family regarding: diagnosis, need for follow-up - Departure Departure Disposition: Home Clinical Impression: Dog bite, Laceration of left breast Condition: Stable Critical Care Time: No Referrals: WILLEM COTA, [Primary Care Provider] - Follow up/PCP as directed (1-2 days for reevaluation) Instructions: Animal Bites (DC), Wound Infection Additional Instructions: Take pain medications as needed. Follow-up with primary care for reevaluation in 2 days. Continue with antibiotics. Regular monitoring of INR every other day until 3 days after completing antibiotics. Return to ER for increasing pain, swelling in the breast, fever chills etc. Prescriptions: Hydrocodone/Acetaminophen [Hydrocodone-Acetamin 5-325 mg] 1 tab PO Q6HPRN PRN 3 Days #12 tablet MDD 4 PRN Reason: Pain clindamycin HCL [Clindamycin HCl] 300 mg PO QID 7 Days #28 cap
[2022-01-26] MEDS ORDERED: XYLOCAINE 1%/Epi 1:100000 MDV 20 ML ONE (11:16)
[2022-01-26] MEDS ORDERED: ZOFRAN ODT 4 MG ONE (11:33)
[2022-01-26] MEDS ORDERED: ZOFRAN ODT 4 MG PO ONE (11:36)
[2022-01-26] MEDS ORDERED: XYLOCAINE 1%/Epi 1:100000 MDV 20 ML IJ ONE (11:39)
[2022-01-26] MEDS ORDERED: CLEOCIN 150 MG CAPSULE PO ONE (11:50)
[2022-01-26] MEDS ORDERED: CLEOCIN 150 MG CAPSULE ONE (11:57)
[2022-01-26 12:08] VITALS: BP 125/73; PULSE 72
[2022-01-26 12:13] LABS: INR 1.87 (0.8-3.0); PROTIME 18.7 SECONDS (9.4-12.5)
== END 2022-01-26 12:13 | disposition home or self-care (01) ==
LOC: ED 10:12
DX: S21.012A Laceration without foreign body of left breast, initial encounter (principal); W54.0XXA Bitten by dog, initial encounter; Z72.0 Tobacco use; Z79.01 Long term (current) use of anticoagulants; Z79.899 Other long term (current) drug therapy; Z28.310 Unvaccinated for COVID-19; Z79.891 Long term (current) use of opiate analgesic
CPT/HCPCS: 12002; 36415; 85610; 96372; 99284; J2270; Q0162; A9270-GY

== ENCOUNTER 2022-02-04 22:54 | Emergency (ER) | payer OTHER ==
[2022-02-05 00:02] VITALS: BP 116/74; PULSE 66; O2SAT 99
--- NOTE | 2022-02-05 00:25 | ERPHSYRPT ---
- History of Present Illness Time Seen by Provider: 02/04/22 23:25 Source: patient Exam Limitations: no limitations Patient Subjective Stated Complaint: pt states "I got bit by a dog last Thursday and I went to Dr. Guallpa yesterday. She cleaned it any everything and now it hurts after she did that." Triage Nursing Assessment: Pt ambulatory to bed by self, pt alert and oriented x3, pt c/o wound pain d/t stitches being cleaned by dr. guallpa yesterday, she was supposed to get them removed but did not d/t not healing enough, pt is afebrile, rating pain 9/10 Physician History: Patient is a 46-year-old female who was bitten on the left breast by the family dog on Father's Day January 26. She has multiple puncture wounds that have been sutured and today she went to see her family doctor who attempted to removed a stitch which had been leaking and oozing some blood on the lower portion of the breast. That area of the breast appears to have been one that was dehiscing. Timing/Duration: day(s) (8) Quality: painful Severity: moderate Location: other (Left breast) Possible Causes: other Allergies/Adverse Reactions: Penicillins Allergy (Verified 01/26/22 10:30) quetiapine fumarate [From Seroquel] Allergy (Verified 01/26/22 10:30) Home Medications: Albuterol Sulfate [Proventil Hfa] 2 puff IH Q6H PRN PRN 07/16/15 [History] Potassium Chloride Tab* [Klor Con 10 MEQ] 10 meq PO DAILY 07/18/16 [History] hydroCHLOROthiazide [Hydrochlorothiazide] 12.5 mg PO DAILY 04/01/19 [History] Gabapentin 300 mg PO TID 01/27/20 [History] Warfarin Sodium 5 mg [Coumadin 5 MG] 5 mg PO WE@209901/27/20 [History] Warfarin Sodium 7.5 mg PO SUMOTUTHFRSA@209907/11/21 [History] Hx Tetanus, Diphtheria Vaccination/Date Given: Yes Hx Influenza Vaccination/Date Given: No Hx Pneumococcal Vaccination/Date Given: No Immunizations Up to Date: Yes Travel Risk - International Travel Have you traveled outside of the country in past 3 weeks: No - Coronavirus Screening Are you exhibiting any of the following symptoms?: No Close contact with a COVID-19 positive Pt in past 14-21 Days: No - Vaccine Status Have you recieved a Covid-19 vaccination: No - Review of Systems Constitutional: No Fever, No Chills Eyes: No Symptoms Ears, Nose, & Throat: No Symptoms Respiratory: No Cough, No Dyspnea Cardiac: No Chest Pain, No Edema, No Syncope Abdominal/Gastrointestinal: No Abdominal Pain, No Nausea, No Vomiting, No Diar aamir Genitourinary Symptoms: No Dysuria Musculoskeletal: No Back Pain, No Neck Pain Skin: No Rash Neurological: No Dizziness, No Focal Weakness, No Sensory Changes Psychological: No Symptoms Endocrine: No Symptoms All Other Systems: Reviewed and Negative - Past Medical History Pertinent Past Medical History: Yes Neurological History: No Pertinent History ENT History: No Pertinent History Cardiac History: Other Respiratory History: No Pertinent History Endocrine Medical History: No Pertinent History Musculoskeletal History: Arthritis, Fibromyalgia GI Medical History: Ulcer History: No Pertinent History Psycho-Social History: Depression Female Reproductive Disorders: No Pertinent History Other Medical History: PACEMAKER, 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,DEPRESSION,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,"SICK SINUS SYNDROME", STENT IN LEG,fibro - Past Surgical History Past Surgical History: Yes Neuro Surgical History: No Pertinent History Cardiac: No Pertinent History, Cardiac Catheterization, Other Respiratory: No Pertinent History Gastrointestinal: Appendectomy, Cholecystectomy Genitourinary: No Pertinent History Musculoskeletal: No Pertinent History Female Surgical History: Hysterectomy Other Surgical History: PACEMAKER,femoral stent - Social History Smoking Status: Current some day smoker How long have you smoked: years Exposure to second hand smoke: Yes Drug Use: none Patient Lives Alone: No - Female History Hx Last Menstrual Period: hysterectomy Hx Now: No - Nursing Vital Signs Nursing Vital Signs: Initial Vital Signs Temperature 97.1 F 02/04/22 23:02 Pulse Rate 82 02/04/22 23:02 Respiratory Rate 16 02/04/22 23:02 Blood Pressure 120/82 02/04/22 23:02 O2 Sat by Pulse Oximetry 98 02/04/22 23:02 Pain Scale Pain Intensity 9 - Physical Exam General Appearance: mild distress, alert Eye Exam: PERRL/EOMI, eyes nml inspection Ears, Nose, Throat Exam: normal ENT inspection, pharynx normal, moist mucous membranes Neck Exam: normal inspection, non-tender, supple, full range of motion Respiratory Exam: normal breath sounds, lungs clear, No respiratory distress Cardiovascular Exam: regular rate/rhythm, normal heart sounds Gastrointestinal/Abdomen Exam: soft, mass, No tenderness Back Exam: normal inspection, normal range of motion, No CVA tenderness, No vertebral tenderness Extremity Exam: normal inspection, normal range of motion Neurologic Exam: alert, oriented x 3, cooperative, normal mood/affect, sensation nml, No motor deficits Skin Exam: normal color, warm, dry, other (Multiple puncture wounds from dog bite left breast) SpO2: 99 - Course Nursing assessment & vital signs reviewed: Yes - Progress Progress: unchanged - Departure Departure Disposition: Home Clinical Impression: Wound infection Condition: Stable Critical Care Time: No Referrals: WILLEM GUALLPA DO [Primary Care Provider] - Follow up/PCP as directed Instructions: Wound Care (DC) Prescriptions: clindamycin HCL [Cleocin HCl] 300 mg PO TID 7 Days #21 cap
== END 2022-02-05 00:39 | disposition home or self-care (01) ==
LOC: ED 22:54
DX: S20.172A Other superficial bite of breast, left breast, initial encounter (principal); L08.9 Local infection of the skin and subcutaneous tissue, unspecified; W54.0XXA Bitten by dog, initial encounter; Z72.0 Tobacco use; Z79.01 Long term (current) use of anticoagulants; Z79.899 Other long term (current) drug therapy; Z28.310 Unvaccinated for COVID-19
CPT/HCPCS: 99281

== ENCOUNTER 2022-02-13 00:37 | Emergency (ER) | payer OTHER ==
--- NOTE | 2022-02-13 01:18 | ERPHSYRPT ---
- History of Present Illness Time Seen by Provider: 02/13/22 00:55 Source: patient Exam Limitations: no limitations Patient Subjective Stated Complaint: pt states "My dog bit my breast on Father's Day and I was suppose to come in and get the sutures removed on Thursday. I came in before and they took 2 out but left the rest." Triage Nursing Assessment: pt ambulated into the er; pt is axo x4; c/o suture removal; pt states 8/10 to left breast; pt has multiple scabs on left breast; pt has [address]; purulent drainage to left lower sutures; no warmth or redness present to left breast; vitals wnl Physician History: Patient a 46-year-old female presents to our ED for a wound check and suture removal. Patient states her personal dog bit her left breast on Father's Day. Patient had 2 sutures removed since then. Patient is here to have the remainder of the sutures removed. The wound appears to be healing well. Patient has completed a course of antibiotics today. No fever. No trauma. No nausea or vomiting. Patient declined pain medication. Symptoms are moderate in intensity. Patient feels well otherwise. She voices no other complaints or concerns at this time. Tetanus up-to-date. Timing/Duration: week(s) (Approximately 3 weeks ago) Severity: moderate Modifying Factors: Improves With: nothing Associated Symptoms: denies symptoms Allergies/Adverse Reactions: Penicillins Allergy (Verified 02/13/22 00:48) quetiapine fumarate [From Seroquel] Allergy (Verified 02/13/22 00:48) Home Medications: Albuterol Sulfate [Proventil Hfa] 2 puff IH Q6H PRN PRN 07/16/15 [History] Potassium Chloride Tab* [Klor Con 10 MEQ] 10 meq PO DAILY 07/18/16 [History] hydroCHLOROthiazide [Hydrochlorothiazide] 12.5 mg PO DAILY 04/01/19 [History] Gabapentin 300 mg PO TID 01/27/20 [History] Warfarin Sodium 5 mg [Coumadin 5 MG] 5 mg PO WE@209901/27/20 [History] Warfarin Sodium 7.5 mg PO SUMOTUTHFRSA@2100 07/11/21 [History] Hx Tetanus, Diphtheria Vaccination/Date Given: Yes Hx Influenza Vaccination/Date Given: No Hx Pneumococcal Vaccination/Date Given: No Travel Risk - International Travel Have you traveled outside of the country in past 3 weeks: No - Coronavirus Screening Are you exhibiting any of the following symptoms?: No Close contact with a COVID-19 positive Pt in past 14-21 Days: No - Vaccine Status Have you recieved a Covid-19 vaccination: No - Review of Systems Constitutional: No Symptoms, No Fever, No Chills Eyes: No Symptoms Ears, Nose, & Throat: No Symptoms Respiratory: No Symptoms, No Cough, No Dyspnea Cardiac: No Symptoms, No Chest Pain, No Edema, No Syncope Abdominal/Gastrointestinal: No Symptoms, No Abdominal Pain, No Nausea, No Vomiting, No Diarrhea Genitourinary Symptoms: No Symptoms, No Dysuria Musculoskeletal: No Symptoms, No Back Pain, No Neck Pain Skin: No Symptoms, No Rash Neurological: No Symptoms, No Dizziness, No Focal Weakness, No Sensory Changes Psychological: No Symptoms Endocrine: No Symptoms Hematologic/Lymphatic: No Symptoms Immunological/Allergic: No Symptoms All Other Systems: Reviewed and Negative - Past Medical History Pertinent Past Medical History: Yes Neurological History: No Pertinent History ENT History: No Pertinent History Cardiac History: Other Respiratory History: No Pertinent History Endocrine Medical History: No Pertinent History Musculoskeletal History: Arthritis, Fibromyalgia GI Medical History: Ulcer History: No Pertinent History Psycho-Social History: Depression Female Reproductive Disorders: No Pertinent History Other Medical History: PACEMAKER, 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,DEPRESSION,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,"SICK SINUS SYNDROME", STENT IN LEG,fibro - Past Surgical History Past Surgical History: Yes Neuro Surgical History: No Pertinent History Cardiac: No Pertinent History, Cardiac Catheterization, Other Respiratory: No Pertinent History Gastrointestinal: Appendectomy, Cholecystectomy Genitourinary: No Pertinent History Musculoskeletal: No Pertinent History Female Surgical History: Hysterectomy Other Surgical History: PACEMAKER,femoral stent - Social History Smoking Status: Current some day smoker How long have you smoked: years Exposure to second hand smoke: Yes Drug Use: none Patient Lives Alone: No - Female History Hx Now: No - Nursing Vital Signs Nursing Vital Signs: Initial Vital Signs Temperature 97.2 F 02/13/22 00:49 Pulse Rate 74 02/13/22 00:49 Respiratory Rate 16 02/13/22 00:49 Blood Pressure 124/74 02/13/22 00:49 O2 Sat by Pulse Oximetry 96 02/13/22 00:49 Pain Scale Pain Intensity 8 - Physical Exam General Appearance: no apparent distress, alert Eye Exam: PERRL/EOMI, eyes nml inspection Ears, Nose, Throat Exam: normal ENT inspection, TMs normal, pharynx normal, moist mucous membranes Neck Exam: normal inspection, non-tender, supple, full range of motion Respiratory Exam: normal breath sounds, lungs clear, No respiratory distress Cardiovascular Exam: regular rate/rhythm, normal heart sounds, normal peripheral pulses Gastrointestinal/Abdomen Exam: soft, normal bowel sounds, No tenderness, No mass Back Exam: normal inspection, normal range of motion, No CVA tenderness, No vertebral tenderness Extremity Exam: normal inspection, normal range of motion, pelvis stable Neurologic Exam: alert, oriented x 3, cooperative, normal mood/affect, nml cerebellar function, nml station & gait, sensation nml, No motor deficits Skin Exam: normal color, warm, dry, other (Left breast with multiple scabs. There are intact sutures. Suture count is 10), No rash Lymphatic Exam: No adenopathy SpO2 Interpretation: normal SpO2: 96 O2 Delivery: Room Air - Course Nursing assessment & vital signs reviewed: Yes - Progress Progress: improved Progress Note: 10 sutures were removed using a 11 blade scalpel.. No complications. Patient tolerated procedure well. Patient reassessed. Patient is ready for discharge. Patient declined pain medication. Dressing was applied to the area of involvement. She agrees to follow-up with her primary care doctor within 48 hours for evaluation. Portions of this note were created with voice recognition technology. There may be grammatical, spelling, punctuation or sound alike errors 02/13/22 01:29 Counseled pt/family regarding: lab results, diagnosis, need for follow-up, rad results - Departure Departure Disposition: Home Clinical Impression: Visit for suture removal, Visit for wound check Condition: Stable Critical Care Time: No Referrals: WILLEM COTA DO [Primary Care Provider] - Follow up/PCP as directed
[2022-02-13 01:26] VITALS: BP 101/72; PULSE 71
[2022-02-13 01:30] VITALS: O2SAT 96
== END 2022-02-13 01:29 | disposition home or self-care (01) ==
LOC: ED 00:37
DX: Z48.02 Encounter for removal of sutures (principal); Z72.0 Tobacco use; Z79.899 Other long term (current) drug therapy; Z28.310 Unvaccinated for COVID-19
CPT/HCPCS: 99281

== ENCOUNTER 2023-01-14 18:25 | Emergency (ER) | payer OTHER ==
[2023-01-14] MEDS ORDERED: BABY ASPIRIN 81 MG CHEW PO ONE (18:42)
[2023-01-14] MEDS ORDERED: BABY ASPIRIN 81 MG CHEW ONE (18:51)
[2023-01-14 19:04] LABS: BASOPHIL % 0.4 % (0.0-0.4); Basophil (Absolute #) 0.04 x10^3/uL (0-0.4); Eosinophil (Absolute #) 0.09 x10^3/uL (0-0.5); Hematocrit 43.8 % (35-47); Hemoglobin 14.3 g/dL (12.0-16.0); IMMATURE GRAN # 0.01 x10^3u/L (0.00-0.03); IMMATURE GRAN % 0.1 % (0.00-0.4); Lymphocyte (Absolute #) 2.56 x10^3/uL (1.0-4.6); Lymphocytes % 28.5 % (24.0-44.0); Mean Corpuscular Hemoglobin 28.7 pg (26-32); Mean Corpuscular Hgb Concent. 32.6 g/dL (32-36); Mean Platelet Volume 11.2 fL (7.5-11.0); Monocyte (Absolute #) 0.57 x10^3/uL (0.0-1.3); Monocytes % 6.4 % (0.0-12.0); Neutrophil % 63.6 % (36.0-66.0); Platelet Count 251 x10^3/uL (150-450); Red Blood Count 4.98 x10^6/uL (4.1-5.4); Red Cell Distribution Width 13.6 % (11.5-14.0)
[2023-01-14] MEDS ORDERED: Ativan 2 MG/1 ML VIAL IV STA (19:11)
[2023-01-14] MEDS ORDERED: Ativan 2 MG/1 ML VIAL ONE (19:17)
[2023-01-14] MEDS ORDERED: NITRO-BID 2% UD PACKETS TOP ONE (19:18)
--- NOTE | 2023-01-14 19:19 | ERPHSYRPT ---
- History of Present Illness Time Seen by Provider: 01/14/23 19:16 Historian: patient Exam Limitations: no limitations Patient Subjective Stated Complaint: "I've had some chest pains for a while but got really bad this morning. I think I'm having a heart attack or my pacemaker isn't working. I feel like I can't catch my breath". Triage Nursing Assessment: Pt presents to ER with complaints of left sided chest pains, states pain is 10/10 scale and radiates to left arm and face. Pt has pacemaker and believes it's not working. Pt is short of breath and wheezing noted. Pt is diaphoretic and pale. Pt is tearful and states father last week. Complains of nausea, denies vomiting. Pt states haven't taken her Ativan and her is currently in half-way, so under a lot of stress. Physician History: Patient is a 47-year-old female presents to our ED with intermittent chest pain and shortness of breath for the past several weeks. Patient states her chest pain worsened today. Chest pain described as an ache that is localized to the left chest. Pain tends to radiate down her left arm. Patient occasionally feels a pressure sensation into her neck as well. Pain associated with nausea. No vomiting. Patient has a pacemaker. Patient states she is under extreme stress. Patient's father last week. Patient states her significant other is currently incarcerated. Patient's symptoms are now constant. Symptoms are moderate in intensity. No specific worsening or improving factors. Patient requesting Ativan. Patient due for her daily dose of Ativan but has not taken it. No trauma. No fever. Patient voices no other complaints or concerns at this time. Portions of this note were created with voice recognition technology. There may be grammatical, spelling, punctuation or sound alike errors Timing/Duration: today Activities at Onset: none Quality: aching Location: other (Left chest) Chest Pain Radiation: neck, arm Severity of Pain-Max: moderate Severity of Pain-Current: mild Modifying Factors: Improves With: nothing Associated Symptoms: nausea, shortness of breath Prior Chest Pain/Cardiac Workup: no prior chest pain Nitro Today/Relief: no nitro taken today Aspirin Treatment Today: no aspirin today Allergies/Adverse Reactions: Penicillins Allergy (Verified 01/14/23 18:38) quetiapine fumarate [From Seroquel] Allergy (Verified 01/14/23 18:38) Home Medications: Albuterol Sulfate [Proventil Hfa] 2 puff IH Q6H PRN PRN 07/16/15 [History] Gabapentin 300 mg PO TID 01/27/20 [History] Warfarin Sodium 5 mg [Coumadin 5 MG] 5 mg PO WE@2100 01/27/20 [History] Warfarin Sodium 7.5 mg PO SANYATBERNADETTEFRSA@2100 07/11/21 [History] Cholecalciferol (Vitamin D3) [D3-2000] 1 cap PO DAILY 01/14/23 [History] Hydroxyzine HCl 25 mg [Atarax 25 mg] 25 mg PO HS 01/14/23 [History] LORazepam [Lorazepam] 0.5 mg PO BID 01/14/23 [History] Hx Tetanus, Diphtheria Vaccination/Date Given: Yes Hx Influenza Vaccination/Date Given: No Hx Pneumococcal Vaccination/Date Given: No Immunizations Up to Date: No Travel Risk - International Travel Have you traveled outside of the country in past 3 weeks: No - Coronavirus Screening Are you exhibiting any of the following symptoms?: No Close contact with a COVID-19 positive Pt in past 14-21 Days: No - Vaccine Status Have you recieved a Covid-19 vaccination: No - Review of Systems Constitutional: No Symptoms, No Fever, No Chills Eyes: No Symptoms Ears, Nose, & Throat: No Symptoms Respiratory: No Symptoms, No Cough, No Dyspnea Cardiac: No Symptoms, No Chest Pain, No Edema, No Syncope Abdominal/Gastrointestinal: No Symptoms, No Abdominal Pain, No Nausea, No Vomiting, No Diarrhea Genitourinary Symptoms: No Symptoms, No Dysuria Musculoskeletal: No Symptoms, No Back Pain, No Neck Pain Skin: No Symptoms, No Rash Neurological: No Symptoms, No Dizziness, No Focal Weakness, No Sensory Changes Psychological: No Symptoms Endocrine: No Symptoms Hematologic/Lymphatic: No Symptoms Immunological/Allergic: No Symptoms All Other Systems: Reviewed and Negative - Past Medical History Pertinent Past Medical History: Yes Neurological History: No Pertinent History ENT History: No Pertinent History Cardiac History: Other Respiratory History: No Pertinent History Endocrine Medical History: No Pertinent History Musculoskeletal History: Arthritis, Fibromyalgia GI Medical History: Ulcer History: No Pertinent History Psycho-Social History: Depression Female Reproductive Disorders: No Pertinent History Other Medical History: PACEMAKER, 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,DEPRESSION,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,"SICK SINUS SYNDROME", STENT IN LEG,fibro - Past Surgical History Past Surgical History: Yes Neuro Surgical History: No Pertinent History Cardiac: No Pertinent History, Cardiac Catheterization, Pacemaker, Other Respiratory: No Pertinent History Gastrointestinal: Appendectomy, Cholecystectomy Genitourinary: No Pertinent History Musculoskeletal: No Pertinent History Female Surgical History: Hysterectomy Other Surgical History: PACEMAKER,femoral stent - Social History Smoking Status: Current every day smoker How long have you smoked: years Exposure to second hand smoke: Yes Drug Use: none Patient Lives Alone: No - Female History Hx Now: No - Nursing Vital Signs Nursing Vital Signs: Initial Vital Signs Temperature 96.6 F 01/14/23 18:28 Pulse Rate 85 01/14/23 18:28 Respiratory Rate 18 01/14/23 18:28 Blood Pressure 98/82 01/14/23 18:28 O2 Sat by Pulse Oximetry 98 01/14/23 18:28 Pain Scale Pain Intensity 3 - Physical Exam General Appearance: no apparent distress, alert Eye Exam: PERRL/EOMI, eyes nml inspection Ears, Nose, Throat Exam: normal ENT inspection, TMs normal, pharynx normal, moist mucous membranes Neck Exam: normal inspection, non-tender, supple, full range of motion Respiratory Exam: normal breath sounds, lungs clear, airway intact, other (RN documents wheezing however no wheezing observed on my physical exam.), No respiratory distress Cardiovascular Exam: regular rate/rhythm, normal heart sounds Gastrointestinal/Abdomen Exam: soft, No tenderness, No mass Back Exam: normal inspection, No CVA tenderness, No vertebral tenderness Extremity Exam: normal inspection, normal range of motion Neurologic Exam: alert, oriented x 3, cooperative, normal mood/affect, sensation nml, No motor deficits Skin Exam: normal color, warm, dry Lymphatic Exam: No adenopathy SpO2 Interpretation: normal SpO2: 98 O2 Delivery: Room Air - Course Nursing assessment & vital signs reviewed: Yes EKG Interpreted by Me: RATE (84), Sinus Rhythm, NORMAL AXIS, NORMAL INTERVALS, NORMAL QRS - Radiology Exams Chest X-ray Interpretation: Teleradiologist Report (No acute cardiopulmonary process observed) - CT Exams Chest CT Interpretation: Tele-radiologist Report (Continued negative PE no new acute findings.) Ordered Tests: Active Orders 24 hr Category Date Time Status EKG-ER Only STAT Care 01/14/23 18:42 Active IV Insertion STAT Care 01/14/23 18:42 Active Pulse Oximetry (ED) STAT Care 01/14/23 18:42 Active CHEST 1 VIEW (PORTABLE) Stat Exams 01/14/23 18:42 Completed CHEST WITH CONTRAST [CT] Stat Exams 01/14/23 19:40 Taken CBC W DIFF Stat Lab 01/14/23 18:30 Completed CMP Stat Lab 01/14/23 18:30 Completed D-DIMER QUANTITATIVE Stat Lab 01/14/23 18:30 Completed NT PRO BNPII Stat Lab 01/14/23 18:30 Completed PROTIME WITH INR Stat Lab 01/14/23 18:30 Completed TROPONIN Q4H Lab 01/14/23 18:30 Completed TROPONIN Q4H Lab 01/14/23 22:45 Ordered TROPONIN Q4H Lab 01/15/23 02:45 Ordered Medication Summary Discontinued Medications Generic Name Dose Route Start Last Admin Trade Name Freq PRN Reason Stop Dose Admin Aspirin 324 mg 01/14/23 18:42 01/14/23 18:52 Aspirin 81 Mg Tab.Chew PO 01/14/23 18:43 324 mg STAT ONE Administration Aspirin Confirm 01/14/23 18:51 Aspirin 81 Mg Tab.Chew Administered 01/14/23 18:52 Dose 324 mg .ROUTE .STK-MED ONE Lorazepam 0.5 mg 01/14/23 19:11 01/14/23 19:20 Lorazepam 2 Mg/1 Ml 2 Mg Vial IV 01/14/23 19:12 0.5 mg ONCE STA Administration Lorazepam Confirm 01/14/23 19:17 Lorazepam 2 Mg/1 Ml 2 Mg Vial Administered 01/14/23 19:18 Dose 2 mg .ROUTE .STK-MED ONE Nitroglycerin 1 gm 01/14/23 19:18 01/14/23 19:22 Nitroglycerin 1 Gm Packet TOP 01/14/23 19:19 1 gm STAT ONE Administration Nitroglycerin Confirm 01/14/23 19:21 Nitroglycerin 1 Gm Packet Administered 01/14/23 19:22 Dose 1 gm .ROUTE .STK-MED ONE Lab/Rad Data: Laboratory Result Diagrams 01/14/23 18:30 01/14/23 18:30 Laboratory Results 01/14/23 01/14/23 01/14/23 Range/Units 18:30 18:30 18:30 WBC (4.0-10.5) x10^3/uL RBC (4.1-5.4) x10^6/uL Hgb (12.0-16.0) g/dL Hct (35-47) % MCV (78-100) fL MCH (26-32) pg MCHC (32-36) g/dL RDW (11.5-14.0) % Plt Count (150-450) x10^3/uL MPV (7.5-11.0) fL Gran % (36.0-66.0) % Immature Gran % (Auto) (0.00-0.4) % Nucleat RBC Rel Count (0.00-0.1) % Eos # (Auto) (0-0.5) x10^3/uL Immature Gran # (Auto) (0.00-0.03) x10^3u/L Absolute Lymphs (auto) (1.0-4.6) x10^3/uL Absolute Monos (auto) (0.0-1.3) x10^3/uL Absolute Nucleated RBC (0.00-0.01) x10^3u/L Lymphocytes % (24.0-44.0) % Monocytes % (0.0-12.0) % Eosinophils % (0.00-5.0) % Basophils % (0.0-0.4) % Absolute Granulocytes (1.4-6.9) x10^3/uL Basophils # (0-0.4) x10^3/uL PT 28.2 H (9.4-12.5) SECONDS INR 2.79 (0.8-3.0) D-Dimer 0.83 H* (0.0-0.50) mg/L Sodium 140 (137-145) mmol/L Potassium 3.8 (3.5-5.1) mmol/L Chloride 106 (98-107) mmol/L Carbon Dioxide 21 L (22-30) mmol/L Anion Gap 16.8 H (5-15) MEQ/L BUN 6 L (7-17) mg/dL Creatinine 0.86 (0.52-1.04) mg/dL Estimated GFR > 60.0 ML/MIN Glucose 137 H (74-106) mg/dL Calcium 9.7 (8.4-10.2) mg/dL Total Bilirubin 0.40 (0.2-1.3) mg/dL AST 25 (14-36) U/L ALT 19 (0-35) U/L Alkaline Phosphatase 90 (38-126) U/L Troponin I < 0.012 (0.000-0.034) ng/mL NT-Pro-B Natriuret Pep 211 (<300) pg/mL Serum Total Protein 8.4 H (6.3-8.2) g/dL Albumin 4.4 (3.5-5.0) g/dL 01/14/23 Range/Units 18:30 WBC 9.0 (4.0-10.5) x10^3/uL RBC 4.98 (4.1-5.4) x10^6/uL Hgb 14.3 (12.0-16.0) g/dL Hct 43.8 (35-47) % MCV 88.0 (78-100) fL MCH 28.7 (26-32) pg MCHC 32.6 (32-36) g/dL RDW 13.6 (11.5-14.0) % Plt Count 251 (150-450) x10^3/uL MPV 11.2 H (7.5-11.0) fL Gran % 63.6 (36.0-66.0) % Immature Gran % (Auto) 0.1 (0.00-0.4) % Nucleat RBC Rel Count 0.0 (0.00-0.1) % Eos # (Auto) 0.09 (0-0.5) x10^3/uL Immature Gran # (Auto) 0.01 (0.00-0.03) x10^3u/L Absolute Lymphs (auto) 2.56 (1.0-4.6) x10^3/uL Absolute Monos (auto) 0.57 (0.0-1.3) x10^3/uL Absolute Nucleated RBC 0.00 (0.00-0.01) x10^3u/L Lymphocytes % 28.5 (24.0-44.0) % Monocytes % 6.4 (0.0-12.0) % Eosinophils % 1.0 (0.00-5.0) % Basophils % 0.4 (0.0-0.4) % Absolute Granulocytes 5.70 (1.4-6.9) x10^3/uL Basophils # 0.04 (0-0.4) x10^3/uL PT (9.4-12.5) SECONDS INR (0.8-3.0) D-Dimer (0.0-0.50) mg/L Sodium (137-145) mmol/L Potassium (3.5-5.1) mmol/L Chloride (98-107) mmol/L Carbon Dioxide (22-30) mmol/L Anion Gap (5-15) MEQ/L BUN (7-17) mg/dL Creatinine (0.52-1.04) mg/dL Estimated GFR ML/MIN Glucose (74-106) mg/dL Calcium (8.4-10.2) mg/dL Total Bilirubin (0.2-1.3) mg/dL AST (14-36) U/L ALT (0-35) U/L Alkaline Phosphatase (38-126) U/L Troponin I (0.000-0.034) ng/mL NT-Pro-B Natriuret Pep (<300) pg/mL Serum Total Protein (6.3-8.2) g/dL Albumin (3.5-5.0) g/dL - Progress Progress: improved Air Movement: good Progress Note: Patient a 47-year-old female presents to our ED with chest pain radiating to her arm and neck. Initial troponin negative. D-dimer positive. CTA chest negative. In light of patient's cardiac risk factors and heart score we advised admission. Patient declined. Patient will leave AMA. Patient states she has obligations at home. Her father recently and her is currently incarcerated. Testing includes EKG which showed normal sinus rhythm. Chest x-ray nonremarkable. CT chest ordered due to elevated D-dimer. CT chest negative for PE. No acute intrathoracic abnormalities observed. CBC CMP within normal limits. D-dimer positive. BNP within normal limits. Initial troponin negative. Patient received Ativan for anxiety. Patient now calm and feels much better. Aspirin and nitroglycerin dosed as well. Patient is of sound mind. Patient is appropriate to make informed and independent medical decisions. Patient understands that leaving AGAINST MEDICAL ADVICE can result in delayed diagnosis, increased risk of morbidity, mortality, short and long-term disability including . In spite of these risks, patient has decided to leave AGAINST MEDICAL ADVICE. Patient understands that she may return to our ED at any point if she reconsiders. Patient agrees to follow-up with her primary care doctor within 48 hours for reevaluation. Patient voices no other complaints or concerns at this time. We will release patient AGAINST MEDICAL ADVICE per their request. Complexity of problem addressed is moderate, new diagnosis with uncertain prognosis No critical care time Complex of data reviewed and analyzed is moderate. Dr. Proctor independently reviewed and analyzed laboratory testing imaging reports and correlated results clinically. Risk of complication and or risk morbidity/mortality of patient management is high. Patient received aspirin nitroglycerin and requires hospitalization however patient refused admission due to home obligations. Will be discharged AMA. She agrees to follow-up with her primary care doctor within 48 hours. No social determinants of health present to impede follow-up. Vital stable at this time. Time in spent to discharge patient approximately 15 minutes. Patient voices no other complaints or concerns at this time. Portions of this note were created with voice recognition technology. There may be grammatical, spelling, punctuation or sound alike error 01/14/23 21:47 01/14/23 21:52 Blood Culture(s) Obtained: No Antibiotics given: No Counseled pt/family regarding: lab results, diagnosis, need for follow-up, rad results - Departure Departure Disposition: AMA Clinical Impression: Chest pain, ACS (acute coronary syndrome), High anion gap metabolic acidosis, of family member, Anxiety Condition: Stable Critical Care Time: No Referrals: WILLEM COTA, DO [Primary Care Provider] - Follow up/PCP as directed
[2023-01-14] MEDS ORDERED: NITRO-BID 2% UD PACKETS ONE (19:21)
[2023-01-14 19:27] LABS: INR 2.79 (0.8-3.0); PROTIME 28.2 SECONDS (9.4-12.5)
[2023-01-14 19:28] LABS: ALBUMIN 4.4 g/dL (3.5-5.0); ALKALINE PHOSPHATASE 90 U/L (38-126); ANION GAP 16.8 MEQ/L (5-15); BLOOD UREA NITROGEN 6 mg/dL (7-17); CHLORIDE 106 mmol/L (98-107); Calcium 9.7 mg/dL (8.4-10.2); Carbon Dioxide 21 mmol/L (22-30); Creatinine 1 0.86 mg/dL (0.52-1.04); EST GLOMERULAR FILTRATION RATE > 60.0 ML/MIN; Glucose 137 mg/dL (74-106); NT PRO BNPII 211 pg/mL (<300); Potassium 3.8 mmol/L (3.5-5.1); SGOT/AST 25 U/L (14-36); SGPT/ALT 19 U/L (0-35); SODIUM 140 mmol/L (137-145); Total Protein 8.4 g/dL (6.3-8.2)
[2023-01-14 19:38] LABS: D-DIMER QUANTITATIVE 0.83 mg/L (0.0-0.50)
--- NOTE | 2023-01-14 19:45 | XRAY ---
CLINICAL HISTORY:Chest pain; COMPARISON:None; TECHNIQUES:X-ray of the chest showing 1 view: Frontal view; FINDINGS: No major collapse or consolidation. Normal configuration of the mediastinum. The thu are normal in size and position. The cardiac size is normal. The tracheal lucency is centrally placed. The costophrenic and cardiophrenic angles are clear. Unremarkable thoracic bony cage with no definite fractures detected. IMPRESSION: No acute cardiopulmonary abnormality is detected. Electronically Signed by: Nishant Mascorro MD. (01/14/2023 18:41:00 TRENCH SHOVEL OPERATOR)
[2023-01-14 21:53] VITALS: BP 125/75; PULSE 77
[2023-01-14 21:54] VITALS: O2SAT 98
--- NOTE | 2023-01-15 08:36 | XRAY ---
Indication: Pain. Elevated d-dimer. Pulmonary embolus. Multiple contiguous axial images obtained through the chest using 100 cc Isovue 370 contrast and PE protocol. Comparison: April 01, 2019 Good opacification of the pulmonary arteries to include the lobar and segmental branches. No pulmonary embolus. Heart not enlarged again with left pacemaker. Aorta is normal in course and caliber. No pathologic mediastinal/hilar lymphadenopathy. 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 Lungs inflated again with minimal emphysema in both upper lobes and minimal bilateral dependent atelectasis. No suspicious pulmonary mass/nodule, infiltrate, or effusion. Bony thorax intact again with minimal degenerative changes throughout the spine. Limited upper abdomen again demonstrates fatty liver, cholecystectomy, and prominent hemiazygos vein. Impression: 1. Continued negative pulmonary embolus. No new/acute cardiopulmonary abnormalities. 2. Again incidental pulmonary emphysema, fatty liver, degenerative spondylosis, and azygos continuation of the IVC.
== END 2023-01-14 21:55 | disposition left against medical advice (07) ==
LOC: ED 18:25
DX: I24.9 Acute ischemic heart disease, unspecified (principal); R07.9 Chest pain, unspecified; E87.20 Acidosis, unspecified; Z63.4 Disappearance and death of family member; F41.9 Anxiety disorder, unspecified; R06.02 Shortness of breath; Z79.01 Long term (current) use of anticoagulants; Z79.899 Other long term (current) drug therapy; Z28.310 Unvaccinated for COVID-19; Z72.0 Tobacco use
CPT/HCPCS: 36000; 36415; 71045; 71260; 80053; 83880; 84484; 85025; 85379; 85610; 93005; 94760; 96374; 99284; J2060; A9270-GY

== ENCOUNTER 2023-08-26 17:29 | Emergency (ER) | payer OTHER ==
[2023-08-26] MEDS ORDERED: TORAdol 30 mg Injection IM ONE (17:38)
[2023-08-26] MEDS ORDERED: TORAdol 30 mg Injection ONE (17:42)
[2023-08-26 17:47] VITALS: RESP 18; TEMP 98.2; O2SAT 97
--- NOTE | 2023-08-26 18:12 | ERPHSYRPT ---
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 Patient states the headache has been present for approximately 1 week. No trauma no f ever no nuchal rigidity no photophobia. No associated nausea vomiting or diaphoresis. Patient had an appointment scheduled with her primary care doctor today however patient states she was unable to attend due to a car issue. No associated numbness tingling or weakness. Patient voices no other complaints or concerns at this time. Portions of this note were created with voice recognition technology. There may be grammatical, spelling, punctuation or sound alike errors Timing/Duration: week(s) (1 week) Severity: moderate Modifying Factors: Improves With: nothing Associated Symptoms: denies symptoms, No nausea Allergies/Adverse Reactions: Penicillins Allergy (Verified 08/26/23 17:35) quetiapine fumarate [From Seroquel] Allergy (Verified 08/26/23 17:35) Home Medications: No Reportable Medications [No Reported Medications] 08/26/23 [History] Hx Tetanus, Diphtheria Vaccination/Date Given: Yes Hx Influenza Vaccination/Date Given: No Hx Pneumococcal Vaccination/Date Given: No Travel Risk - International Travel Have you traveled outside of the country in past 3 weeks: No - Coronavirus Screening Are you exhibiting any of the following symptoms?: Yes Symptoms: Headaches/Body Aches/Fatigue Close contact with a COVID-19 positive Pt in past 14-21 Days: No - Vaccine Status Have you recieved a Covid-19 vaccination: No - Review of Systems Constitutional: No Symptoms, No Fever, No Chills Eyes: No Symptoms Ears, Nose, & Throat: No Symptoms Respiratory: No Symptoms, No Cough, No Dyspnea Cardiac: No Symptoms, No Chest Pain, No Edema, No Syncope Abdominal/Gastrointestinal: No Symptoms, No Abdominal Pain, No Nausea, No Vomiting, No Diarrhea Genitourinary Symptoms: No Symptoms, No Dysuria Musculoskeletal: No Symptoms, No Back Pain, No Neck Pain Skin: No Symptoms, No Rash Neurological: No Symptoms, No Dizziness, No Focal Weakness, No Sensory Changes Psychological: No Symptoms Endocrine: No Symptoms Hematologic/Lymphatic: No Symptoms Immunological/Allergic: No Symptoms All Other Systems: Reviewed and Negative - Past Medical History Pertinent Past Medical History: Yes Neurological History: No Pertinent History ENT History: No Pertinent History Cardiac History: Other Respiratory History: No Pertinent History Endocrine Medical History: No Pertinent History Musculoskeletal History: Arthritis, Fibromyalgia GI Medical History: Ulcer History: No Pertinent History Psycho-Social History: Depression Female Reproductive Disorders: No Pertinent History Other Medical History: PACEMAKER, 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,DEPRESSION,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,"SICK SINUS SYNDROME", STENT IN LEG,fibro - Past Surgical History Past Surgical History: Yes Neuro Surgical History: No Pertinent History Cardiac: No Pertinent History, Cardiac Catheterization, Pacemaker, Other Respiratory: No Pertinent History Gastrointestinal: Appendectomy, Cholecystectomy Genitourinary: No Pertinent History Musculoskeletal: No Pertinent History Female Surgical History: Hysterectomy Other Surgical History: PACEMAKER,femoral stent - Social History Smoking Status: Current every day smoker How long have you smoked: years Exposure to second hand smoke: Yes Drug Use: none Patient Lives Alone: Yes - Female History Hx Now: No - Nursing Vital Signs Nursing Vital Signs: Initial Vital Signs Pulse Rate 71 08/26/23 17:36 Blood Pressure 104/86 08/26/23 17:36 O2 Sat by Pulse Oximetry 97 08/26/23 17:36 Pain Scale Pain Intensity [Right Head] 10 Pain Intensity 8 - Physical Exam General Appearance: no apparent distress, alert Eye Exam: PERRL/EOMI, eyes nml inspection Ears, Nose, Throat Exam: normal ENT inspection, TMs normal, pharynx normal, moist mucous membranes (Frontal and right maxillary sinus tenderness. Nasal congestion on exam rhinorrhea), other (Right frontal sinus tenderness right maxillary sinus tenderness. Some tenderness along the right upper trapezius into the rhomboid. Overlying soft tissue intact. No signs of trauma.) Neck Exam: normal inspection, non-tender, supple, full range of motion Respiratory Exam: normal breath sounds, lungs clear, airway intact, No respiratory distress Cardiovascular Exam: regular rate/rhythm, normal heart sounds, normal peripheral pulses Gastrointestinal/Abdomen Exam: soft, normal bowel sounds, No tenderness, No mass Back Exam: normal inspection, normal range of motion, No CVA tenderness, No vertebral tenderness Extremity Exam: normal inspection, normal range of motion, pelvis stable Neurologic Exam: alert, oriented x 3, cooperative, normal mood/affect, nml cerebellar function, nml station & gait, sensation nml, other (Nonremarkable neuroexam), No motor deficits, No sensory deficit, No confusion, No motor weakness, No slurred speech, No aphasia, No dysarthria, No abnormal gait, No abnormal cerebellar tests, No abnormal dial printer II-XII, No EOM palsy Skin Exam: normal color, warm, dry, No rash Lymphatic Exam: No adenopathy SpO2 Interpretation: normal SpO2: 97 O2 Delivery: Room Air - Course Nursing assessment & vital signs reviewed: Yes Ordered Tests: Medication Summary Discontinued Medications Generic Name Dose Route Start Last Admin Trade Name Pabloq PRN Reason Stop Dose Admin Ketorolac Tromethamine 30 mg 08/26/23 17:38 08/26/23 17:43 Ketorolac Tromethamine 30 Mg/Ml Inj IM 08/26/23 17:39 30 mg STAT ONE Administration Ketorolac Tromethamine Confirm 08/26/23 17:42 Ketorolac Tromethamine 30 Mg/Ml Inj Administered 08/26/23 17:43 Dose 30 mg .ROUTE .[employer] ONE Lab/Rad Data: Laboratory Results 08/26/23 Range/Units 17:59 Influenza Type A Ag NEGATIVE (NEGATIVE) Influenza Type B Ag NEGATIVE (NEGATIVE) RSV (PCR) NEGATIVE (NEGATIVE) SARS-CoV-2 (PCR) NEGATIVE (NEGATIVE) - Progress Progress: improved Progress Note: 48-year-old female presents to our ED for evaluation of a right frontal headache. Pain tends to radiate towards her scalp posteriorly. Physical exam reveals right frontal sinus tenderness right maxillary sinus tenderness. 08/26/23 18:47 RSV COVID influenza negative. Patient received Toradol for headache. Vital stable. Vitals within normal limits 08/26/23 18:52 Patient agrees to follow-up with her primary care doctor within 48 hours for reevaluation. Portions of this note were created with voice recognition technology. There may be grammatical, spelling, punctuation or sound alike errors Complexity problem addressed is moderate acute complicated No critical care time Complexity of data reviewed and analyzed is low. Test ordered test reviewed. Results analyzed and correlated clinically with history and physical exam. Risk of complication and or risk morbidity/mortality patient management is low. Vital stable. Time spent to discharge patient is approximately 10 minutes. Plan of care established for shared decision making. No social determinants of health present impede follow-up. Portions of this note were created with voice recognition technology. There may be grammatical, spelling, punctuation or sound alike errors 08/26/23 19:00 Counseled pt/family regarding: lab results, diagnosis, need for follow-up - Departure Departure Disposition: Home Clinical Impression: Viral sinusitis, Headache, URI (upper respiratory infection) Condition: Stable Critical Care Time: No Referrals: KASSIDY MORALES, [Primary Care Provider] - Follow up/PCP as directed Additional Instructions: Discharge/Care Plan JOHANNADWIGHT PAINTING was seen on 08/26/23 in the Emergency Room. The patient was counseled regarding Diagnosis,Lab results, Imaging studies, need for follow up and when to return to the Emergency Room. Prescriptions given: Discharge Note I have spoken with the patient and/or caregivers. I have explained the patient's condition, diagnosis and treatment plan based on the information available to me at this time. I have answered the patient's and/or caregiver's questions and addressed any concerns. The patient and/or caregivers have as good understanding of the patient's diagnosis, condition and treatment plan as can be expected at this point. The vital signs have been stable. The patient's condition is stable and appropriate for discharge from the emergency department. The patient will pursue further outpatient evaluation with the primary care physician or other designated or consulting physician as outlined in the discharge instructions. The patient and/or caregivers are agreeable to this plan of care and follow-up instructions have been explained in detail. The patient and/or caregivers have received these instruction. The patient/and or caregivers are aware that any significant change in condition or worsening of symptoms should prompt an immediate return to this or the closest emergency department or call 911.
[2023-08-26 18:40] LABS: INFLUENZA A NEGATIVE (NEGATIVE); INFLUENZA B NEGATIVE (NEGATIVE); RESPIRATORY SYNCTIAL VIRUS NEGATIVE (NEGATIVE); SARS-CoV-2 Xpert Express NEGATIVE (NEGATIVE)
[2023-08-26 19:12] VITALS: BP 126/76; PULSE 59
== END 2023-08-26 19:19 | disposition home or self-care (01) ==
LOC: ED 17:29
DX: J32.9 Chronic sinusitis, unspecified (principal); B97.89 Other viral agents as the cause of diseases classified elsewhere; R51.9 Headache, unspecified; J06.9 Acute upper respiratory infection, unspecified; Z28.310 Unvaccinated for COVID-19; Z72.0 Tobacco use
CPT/HCPCS: 0241U; 96372; 99283; J1885

== ENCOUNTER 2024-04-25 06:46 | Emergency (ER) | payer OTHER ==
[2024-04-25 07:01] VITALS: TEMP 96.7
--- NOTE | 2024-04-25 07:18 | ERPHSYRPT ---
- History of Present Illness Time Seen by Provider: 04/25/24 07:05 Source: patient, family Exam Limitations: no limitations Patient Subjective Stated Complaint: pt reports around midnight last night started feeling short of breath then started having pain to her left arm, left lower back and left groin and upper leg. pt reports a stent in her left leg. pt denies any injury or accident. pt reports she is under a lot of emotional stress due to her being in half-way. pt states she has a pacemaker but has not seen a retail pharmacist in approx 5 years. pt states she recently stopped taking her eliquis due to blood in her urine and stool. Triage Nursing Assessment: pt is aox3, pupils perrl, afebrile, no appears in no acute distress, resps easy non labored, lung sounds are clear posteriorly, bilat, radial pulses strong equal, heart tones normal, cap refill < 3 seconds, pt skin pink warm dry. no edema appreaciated. Physician History: This is a 48-year-old white female patient who was brought in by private vehicle and is a patient of Dr. Morales with a complaint of shortness of breath that began at midnight prior to arrival. She also has associated left arm pain. She has had similar symptoms in the past. Patient has a history of arthritis and fibromyalgia. She also has pain in her left lower back, left groin and left upper leg. Patient does have a left femoral arterial stent in place and a history of peripheral vascular disease. She also has a history of DVTs but is on Coumadin. Patient has never been diagnosed with coronary artery disease but she does have a history of sick sinus syndrome and has a pacemaker in place. Patient continues to smoke tobacco cigarettes daily. Patient states she is under a lot of emotional stress secondary to her spouse being incarcerated. Timing/Duration: today Activities at Onset: none Severity of Dyspnea-Max: mild Severity of Dyspnea-Current: mild Possible Cause: occasional episodes Modifying Factors: Improves With: nothing Associated Symptoms: anxiety, No chest pain/discomfort Allergies/Adverse Reactions: Penicillins Allergy (Verified 04/25/24 07:01) quetiapine fumarate [From Seroquel] Allergy (Verified 04/25/24 07:01) Home Medications: Cholecalciferol (Vitamin D3) [Vitamin D] 1 each PO DAILY 04/25/24 [History] Gabapentin [Neurontin ] 300 mg PO TID 04/25/24 [History] Hydroxyzine HCl 25 mg [Atarax 25 mg] 25 mg PO HS 04/25/24 [History] Hx Tetanus, Diphtheria Vaccination/Date Given: Yes Hx Influenza Vaccination/Date Given: No Hx Pneumococcal Vaccination/Date Given: No Immunizations Up to Date: Yes Travel Risk - International Travel Have you traveled outside of the country in past 3 weeks: No - Emerging Infectious Disease Are you exhibiting symptoms associated with any current EIDs: Yes Symptoms: Headaches/Body Aches/, Shortness of Breath - Review of Systems Constitutional: No Symptoms Eyes: No Symptoms Ears, Nose, & Throat: No Symptoms Respiratory: Dyspnea Cardiac: No Symptoms Abdominal/Gastrointestinal: No Symptoms Genitourinary Symptoms: No Symptoms Musculoskeletal: No Symptoms Skin: No Symptoms Neurological: No Symptoms Psychological: No Symptoms Endocrine: No Symptoms Hematologic/Lymphatic: No Symptoms Immunological/Allergic: No Symptoms All Other Systems: Reviewed and Negative - Past Medical History Pertinent Past Medical History: Yes Neurological History: No Pertinent History ENT History: No Pertinent History Cardiac History: Other Respiratory History: No Pertinent History Endocrine Medical History: No Pertinent History Musculoskeletal History: Arthritis, Fibromyalgia GI Medical History: Ulcer History: No Pertinent History Psycho-Social History: Depression Female Reproductive Disorders: No Pertinent History Other Medical History: PACEMAKER, 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, DEPRESSION,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,"SICK SINUS SYNDROME", STENT IN LEG - Past Surgical History Past Surgical History: Yes Neuro Surgical History: No Pertinent History Cardiac: No Pertinent History, Cardiac Catheterization, Pacemaker, Other Respiratory: No Pertinent History Gastrointestinal: Appendectomy, Cholecystectomy Genitourinary: No Pertinent History Musculoskeletal: No Pertinent History Female Surgical History: Hysterectomy Other Surgical History: PACEMAKER,femoral stent - Female History Hx Now: No - Social History Smoking Status: Current every day smoker How long have you smoked: 34 Exposure to second hand smoke: Yes Drug Use: none Patient Lives Alone: Yes - Social Determinants of Health Will the patient participate in the screening: Yes Do you worry about a steady place to live?: No Do you have any problems with any of the following?: No known problems In the past 12 months,have you had to go without utilities?: No Transportation Issues: No Has anyone in your support network made you feel unsafe?: No Have you or anyone in your house had to go without enough: No - Nursing Vital Signs Nursing Vital Signs: Initial Vital Signs Pulse Rate 68 04/25/24 06:46 Respiratory Rate 17 04/25/24 06:46 Blood Pressure 127/81 04/25/24 06:46 O2 Sat by Pulse Oximetry 98 04/25/24 06:46 Pain Scale Pain Intensity 4 - Physical Exam General Appearance: no apparent distress, alert, anxiety Eye Exam: PERRL/EOMI, eyes nml inspection Ears, Nose, Throat Exam: hearing grossly normal, normal ENT inspection, normal pharynx Neck Exam: normal inspection, non-tender, supple, full range of motion Respiratory Exam: normal breath sounds, lungs clear, airway intact, No chest tenderness, No respiratory distress Cardiovascular/Chest Exam: normal heart sounds, regular rate/rhythm Abdominal/Gastrointestinal Exam: soft, normal bowel sounds, tenderness Rectal Exam: not done Extremity Exam: normal range of motion, normal inspection, normal capillary refill, no calf tenderness, no pedal edema, pelvis stable Peripheral Pulses Exam: dorsalis-pedis (R): 3+ (Strong palpable pulses), dorsalis-pedis (L): 3+ (Strong palpable pedal pulses) Neurologic Exam: alert, oriented x 3, 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 New pacemaker atrial paced rhythm when compared to twelve-lead EKG dated 01/14/2023. QTc is 406) Ordered Tests: Active Orders 24 hr Category Date Time Status Social Welfare Clerk STAT Care 04/25/24 07:20 Active EKG-ER Only STAT Care 04/25/24 07:20 Active IV Insertion STAT Care 04/25/24 07:20 Active Pulse Oximetry (ED) STAT Care 04/25/24 07:20 Active CHEST 1 VIEW (PORTABLE) Stat Exams 04/25/24 07:20 Completed CBC W DIFF Stat Lab 04/25/24 06:55 Completed CMP Stat Lab 04/25/24 06:55 Completed NT PRO BNPII Stat Lab 04/25/24 06:55 Completed PROTIME WITH INR Stat Lab 04/25/24 06:55 Completed TROPONIN Q4H Lab 04/25/24 06:55 Completed TROPONIN Q4H Lab 04/25/24 11:30 Ordered TROPONIN Q4H Lab 04/25/24 15:30 Ordered Lab/Rad Data: Laboratory Result Diagrams 04/25/24 06:55 04/25/24 06:55 Laboratory Results 04/25/24 04/25/24 04/25/24 Range/Units Unknown 06:55 06:55 WBC (3.98-10.04) x10^3/uL RBC (3.93-5.22) x10^6/uL Hgb (11.2-15.7) g/dL Hct (34.1-44.9) % MCV (79.4-94.8) fL MCH (25.6-32.2) pg MCHC (32.2-35.5) g/dL RDW (11.7-14.4) % Plt Count (182-369) x10^3/uL MPV (9.4-12.3) fL Gran % (34.0-71.1) % Immature Gran % (Auto) (0.001-0.429) % Nucleat RBC Rel Count (0.00-0.2) % Eos # (Auto) (0.04-0.36) x10^3/uL Immature Gran # (Auto) (0.001-0.031) x10^3u/L Absolute Lymphs (auto) (1.18-3.74) x10^3/uL Absolute Monos (auto) (0.24-0.86) x10^3/uL Absolute Nucleated RBC (0.00-0.012) x10^3u/L Lymphocytes % (19.3-51.7) % Monocytes % (4.7-12.5) % Eosinophils % (0.7-5.8) % Basophils % (0.1-1.2) % Absolute Granulocytes (1.56-6.13) x10^3/uL Basophils # (0.01-0.08) x10^3/uL PT 9.7 (9.4-12.5) SECONDS INR 0.88 (0.8-3.0) Sodium (135-145) mmol/L Potassium (3.5-5.1) mmol/L Chloride (98-107) mmol/L Carbon Dioxide (22-30) mmol/L Anion Gap (5-15) MEQ/L BUN (7-17) mg/dL Creatinine (0.52-1.04) mg/dL Estimated GFR ML/MIN Glucose (74-106) mg/dL Calcium (8.4-10.2) mg/dL Total Bilirubin (0.2-1.3) mg/dL AST (14-36) U/L ALT (0-35) U/L Alkaline Phosphatase (38-126) U/L Troponin I < 0.012 (0.000-0.033) ng/mL NT-Pro-B Natriuret Pep (<300) pg/mL Serum Total Protein (6.3-8.2) g/dL Albumin (3.5-5.0) g/dL Influenza Type A Ag NEGATIVE (NEGATIVE) Influenza Type B Ag NEGATIVE (NEGATIVE) RSV (PCR) NEGATIVE (NEGATIVE) SARS-CoV-2 (PCR) NEGATIVE (NEGATIVE) 04/25/24 04/25/24 Range/Units 06:55 06:55 WBC 10.6 H (3.98-10.04) x10^3/uL RBC 4.71 (3.93-5.22) x10^6/uL Hgb 13.7 (11.2-15.7) g/dL Hct 42.6 (34.1-44.9) % MCV 90.4 (79.4-94.8) fL MCH 29.1 (25.6-32.2) pg MCHC 32.2 (32.2-35.5) g/dL RDW 13.1 (11.7-14.4) % Plt Count 199 (182-369) x10^3/uL MPV 11.4 (9.4-12.3) fL Gran % 51.0 (34.0-71.1) % Immature Gran % (Auto) 0.3 (0.001-0.429) % Nucleat RBC Rel Count 0.0 (0.00-0.2) % Eos # (Auto) 0.24 (0.04-0.36) x10^3/uL Immature Gran # (Auto) 0.03 (0.001-0.031) x10^3u/L Absolute Lymphs (auto) 4.30 H (1.18-3.74) x10^3/uL Absolute Monos (auto) 0.54 (0.24-0.86) x10^3/uL Absolute Nucleated RBC 0.00 (0.00-0.012) x10^3u/L Lymphocytes % 40.8 (19.3-51.7) % Monocytes % 5.1 (4.7-12.5) % Eosinophils % 2.3 (0.7-5.8) % Basophils % 0.5 (0.1-1.2) % Absolute Granulocytes 5.39 (1.56-6.13) x10^3/uL Basophils # 0.05 (0.01-0.08) x10^3/uL PT (9.4-12.5) SECONDS INR (0.8-3.0) Sodium 141 (135-145) mmol/L Potassium 3.5 (3.5-5.1) mmol/L Chloride 107 (98-107) mmol/L Carbon Dioxide 25 (22-30) mmol/L Anion Gap 12.3 (5-15) MEQ/L BUN 11 (7-17) mg/dL Creatinine 1.04 (0.52-1.04) mg/dL Estimated GFR 66.3 ML/MIN Glucose 125 H (74-106) mg/dL Calcium 9.9 (8.4-10.2) mg/dL Total Bilirubin 0.30 (0.2-1.3) mg/dL AST 28 (14-36) U/L ALT 24 (0-35) U/L Alkaline Phosphatase 88 (38-126) U/L Troponin I (0.000-0.033) ng/mL NT-Pro-B Natriuret Pep 68.1 (<300) pg/mL Serum Total Protein 7.4 (6.3-8.2) g/dL Albumin 4.2 (3.5-5.0) g/dL Influenza Type A Ag (NEGATIVE) Influenza Type B Ag (NEGATIVE) RSV (PCR) (NEGATIVE) SARS-CoV-2 (PCR) (NEGATIVE) - Progress Progress: re-examined Air Movement: good Progress Note: 04/25/24 07:33 My medical decision making and the assignment of moderate complexity to this patient's medical issue today is based on review of the patient's past medical history, review of the patient's medication list, reviewed patient drug allergy list, history present nose and physical findings on examination. The workup today includes placement of intravenous line, twelve-lead EKG, CBC, CMP, magnesium level, troponin level, twelve-lead EKG, BNP, viral swabs and chest x- ray. Differential diagnosis includes but is not limited to anxiety about health, arrhythmia, myocardial infarction, electrolyte abnormalities 04/25/24 08:46 I interpreted the patient's laboratory data results. Based on the laboratory data results, there are no acute, emergent findings. The chest x-ray was interpreted by the radiologist and I reviewed the impression. The impression states nonacute hyper inflated chest. Patient is on Coumadin. I will make sure she is taking her medication as prescribed and she will follow-up with her prescribing provider. Blood Culture(s) Obtained: No Counseled pt/family regarding: lab results, diagnosis, need for follow-up, rad results Medical Desision Making - Diagnostic Testing Diagnostic test were ordered, analyzed, and reviewed by me: Yes Radiological Interpretation: Reviewed by me, Teleradiologist Report - Risk of complications Low Risk: Low risk of morbidity from additional dx testing or treatment - Departure Departure Disposition: Home Clinical Impression: Shortness of breath, Stress at home, Subtherapeutic anticoagulation Condition: Stable Critical Care Time: No Referrals: KASSIDY MORALES DO [Primary Care Provider] - Follow up/PCP as directed Additional Instructions: Take your medications as prescribed. Call your primary prescribing provider to discuss your warfarin dosing.
[2024-04-25 07:29] LABS: Absolute Neutrophil Ct (ANC) 5.39 x10^3/uL (1.56-6.13); BASOPHIL % 0.5 % (0.1-1.2); Basophil (Absolute #) 0.05 x10^3/uL (0.01-0.08); Eosinophil % 2.3 % (0.7-5.8); Eosinophil (Absolute #) 0.24 x10^3/uL (0.04-0.36); Hematocrit 42.6 % (34.1-44.9); Hemoglobin 13.7 g/dL (11.2-15.7); IMMATURE GRAN # 0.03 x10^3u/L (0.001-0.031); IMMATURE GRAN % 0.3 % (0.001-0.429); Lymphocytes % 40.8 % (19.3-51.7); Mean Cell Volume 90.4 fL (79.4-94.8); Mean Corpuscular Hemoglobin 29.1 pg (25.6-32.2); Mean Corpuscular Hgb Concent. 32.2 g/dL (32.2-35.5); Mean Platelet Volume 11.4 fL (9.4-12.3); Monocyte (Absolute #) 0.54 x10^3/uL (0.24-0.86); Monocytes % 5.1 % (4.7-12.5); Platelet Count 199 x10^3/uL (182-369); Red Blood Count 4.71 x10^6/uL (3.93-5.22); Red Cell Distribution Width 13.1 % (11.7-14.4); White Blood Count 10.6 x10^3/uL (3.98-10.04)
[2024-04-25 07:43] LABS: INR 0.88 (0.8-3.0); PROTIME 9.7 SECONDS (9.4-12.5)
[2024-04-25 07:52] LABS: ALBUMIN 4.2 g/dL (3.5-5.0); ANION GAP 12.3 MEQ/L (5-15); BILIRUBIN,TOTAL 0.3 mg/dL (0.2-1.3); Calcium 9.9 mg/dL (8.4-10.2); Creatinine 1 1.04 mg/dL (0.52-1.04); EST GLOMERULAR FILTRATION RATE 66.3 ML/MIN; NT PRO BNPII 68.1 pg/mL (<300); Potassium 3.5 mmol/L (3.5-5.1); Total Protein 7.4 g/dL (6.3-8.2)
[2024-04-25 08:16] LABS: INFLUENZA A NEGATIVE (NEGATIVE); INFLUENZA B NEGATIVE (NEGATIVE); RESPIRATORY SYNCTIAL VIRUS NEGATIVE (NEGATIVE); SARS-CoV-2 Xpert Express NEGATIVE (NEGATIVE)
[2024-04-25 08:23] VITALS: PULSE 64
--- NOTE | 2024-04-25 08:42 | XRAY ---
Indication: Short of breath. Comparison: January 14, 2023 Portable chest remains hyperinflated and clear. Heart not enlarged again with left pacemaker. Bony thorax intact again with mild dextroscoliosis. Impression: Continued nonacute hyperinflated chest.
[2024-04-25 09:31] VITALS: BP 112/70; RESP 22; O2SAT 98
== END 2024-04-25 09:30 | disposition home or self-care (01) ==
LOC: ED 06:46
DX: R06.02 Shortness of breath (principal); R79.1 Abnormal coagulation profile; Z63.32 Other absence of family member; M79.602 Pain in left arm; M54.50 Low back pain, unspecified; R10.2 Pelvic and perineal pain; M79.652 Pain in left thigh; Z79.01 Long term (current) use of anticoagulants; Z79.899 Other long term (current) drug therapy; Z72.0 Tobacco use
CPT/HCPCS: 0241U; 36000; 36415; 71045; 80053; 83880; 84484; 85025; 85610; 93005; 93041; 94760; 99284